=== PATIENT | male | born 1965 | race Caucasian/White ===

== ENCOUNTER 2017-03-03 15:44 | Outpatient (CLI) | payer OTHER ==
[~2017-03-03] VITALS: Ht 154.9 cm; Wt 59.1 kg
[~2017-03-03 15:44] MED LIST: ASA; Amaryl; IBUP-1542 PO; Januvia; tylenol
[2017-03-03 15:53] VITALS: BP 155/72; PULSE 80; RESP 18; Ht 154.9 cm; Wt 59.1 kg
--- NOTE | 2017-03-03 16:22 | PN ---
Date/Time of Note Date/Time of Note DATE: 03/03/17 TIME: 16:18 Outpatient Progress Note Chief Complaint GI bleed/anemia/diabetes/hypertension HPI GI bleed/patient was recently admitted with a GI bleeding, patient had EGD, and cauterization, patient already on medication, patient still has slight abdominal discomfort, Anemia/no hematemesis melena, patient feel weakness and tiredness, no dizziness or syncope, Diabetes/no pleuritic supple due to hypoglycemia, patient blood sugar was 160 this morning, Hypertension/no headache or dizziness, no lightheadedness, no local focal weakness, Review of Systems Const: No Fever, no chills, no Wt. loss, no Fatigue, normal appetite, no diaphoresis. Eyes: No pain, no discharge, no redness, no visual change, no foreign body. ENT: No pain, no bleeding, no congestion, no sore throat, no dysphagia, no discharge or rhinitis. Lymph: No adenopathy, no tender nodes, no lymphedema. Resp: No SOB, no cough, no sputum, no wheezing, no chest pain. CV: No chest pain, no palpitaions, no BISWAS, no PND, no edema. GI: Normal appetite, mild epigastric pain, no nausea, no vomiting, no diarrhea, no blood, no constipation. : No frequency, no urgency, no dysuria, no hematuria, no flank pain, no discharge, no bleeding. Musc: No bone/joint pain, no back pain, no neck pain, no knee pain, no restricted ROM. Skin: No rash, no skin lesions, no erythema, no laceration, no bruising, no pruritus. Neuro: No AGUILLON, no dizziness, no syncope, no seizure, no focal-weakness. Endo: No polyuria, no polydypsia, no dry-skin, no temp-intolerance. Psych: No hallucinations, no depression, no anxiety, no suicidal ideation. Ext: No edema, no pain, no ulcer, no weakness. Physical Exam General Appearance: A 51 year-old male who appears well-developed, well- nourished, in no acute distress. HEENT: Head normocephalic, atraumatic. Pupils equal, round, reactive to light and accommodate. Sclerae are no jaundice. Nasal turbinates pink without erythema or nasal discharge. Mucous membranes pink and moist without lesions. Oropharynx clear without any exudate or discharge. NECK: Supple. Trachea midline, No thyromegaly, No cervical lymphadenopathy, No mass, No carotid bruits, No JVD, Carotid pulses 2+ bilaterally. PULMONARY: Clear to auscultaion bilaterally, No retractions, Chest expansion symmetric bilaterally, no rales, no ronchi, no dulness on percussion. CARDIAC: Normal SI and S2, Regular rate and rythm, no murmur, gallop, or rub. GASTROINTESTINAL: Abdomen is soft, mild epigastric discomfort, Non Rigid, No distention, Positive bowel sounds x4 quadrants, Liver normal. SKIN: Warm, dry, no rash, no bruise, no echmosis. EXTREMITIES: Bilateral lower extremities normal, no edema, no phlabitus, pulse palpable, no contracture. MUSCULOSKELETAL: Spine Normal, Non-tender, Normal range of motion, No swelling, no deformity, no clubbing, or cyanosis, the patient has no edema to bilateral lower extremities, dorsalis pedis pulses palpable bilaterally. NEUROLOGIC: The patient is awake, alert, oriented, responding to yes/no questions appropriately, moving all extremities, cranial nerve intact, normal strenght, normal power, normal coordination, normal gait. Allergies Coded Allergies: No Known Allergies (Verified Allergy, Mild, 11/23/10) PMH GI bleeding/PUD/anemia/diabetes/hypertension/anxiety Social Hx No smoking no drinking, Family Hx Noncontributory Assessment/Plan Impression GI bleeding/anemia/diabetes/hypertension Plan Patient education done about GI bleeding, diabetes and hypertension, patient encouraged to control the blood pressure and blood sugar, Patient still complains of minimal abdominal discomfort, patient does not have any black stool at present, will monitor closely, We will repeat CBC and BMP in 10 days, will check hemoglobin and hematocrit and blood sugar, Patient encouraged to follow with the primary care physician, Patient advised not to take Advil, or Motrin, or ibuprofen, Naprosyn, Medications Home Meds Active Scripts Ibuprofen* (Motrin*) 600 Mg Tab, 600 MG PO Q6, #30 TAB Prov:WATSON CARLSON 11/13/15 Reported Medications [Asa] No Conflict Check 11/23/10 [Januvia] No Conflict Check 11/23/10 [Amaryl] No Conflict Check 11/23/10 [tylenol] No Conflict Check 11/23/10 CY BHATIA MD Mar 03, 2017 16:22
[2017-03-03] MEDS ORDERED: LANT3I SC (16:37)
[2017-03-03] MEDS ORDERED: SIMV20TA PO (16:37)
[2017-03-03] MEDS ORDERED: BENA5TAB2 PO (16:37)
== END 2017-03-03 16:49 | disposition home or self-care (01) ==
LOC: DCC 15:44
PROVIDERS: ATTEND Internal Medicine
DX: K92.2 Gastrointestinal hemorrhage, unspecified (principal); D64.9 Anemia, unspecified; I10 Essential (primary) hypertension; E11.9 Type 2 diabetes mellitus without complications
CPT/HCPCS: 82962; G0463

== ENCOUNTER 2017-04-12 23:16 | Inpatient (IN) | payer OTHER ==
[~2017-04-12] VITALS: Ht 154.9 cm; Wt 56.1 kg
[~2017-04-12 23:16] MED LIST changes: +BENA5TAB2 PO; +LANT3I SC; +SIMV20TA PO
[2017-04-13] VITALS (11 sets, daily range): BP systolic 104–155; BP diastolic 59–76; PULSE 65–83; RESP 20; Ht 154.9 cm; Wt 56.1 kg
[2017-04-13] MEDS ORDERED: hydrALAzine 20 MG INJ IV PRN (03:00)
[2017-04-13] MEDS ORDERED: HYDROCODONE/APAP (5/325) TAB PO PRN (03:00)
[2017-04-13] MEDS ORDERED: GLUCOSE GEL 15 GRAM TUBE BUCCAL PRN (03:30)
[2017-04-13] MEDS ORDERED: DEXTROSE 50% 50 ML SYRINGE IV PRN ×2 (03:30)
[2017-04-13] MEDS ORDERED: GLUCOSE GEL 15 GRAM TUBE PO PRN ×2 (03:30)
[2017-04-13] MEDS ORDERED: GLUCAGON 1 MG INJ IM PRN (03:30)
[2017-04-13 04:09] LABS: BASOPHILS % 0.1 % (0.0-2.0); HEMATOCRIT 29.5 % (42.0-52.0); HEMOGLOBIN 10.4 g/dl (14.0-18.0); LYMPHOCYTES % 10.4 % (15.0-51.0); MEAN CORPUSCULAR HEMOGLOBIN 29.9 pg (29.0-33.0); MEAN CORPUSCULAR HGB CONC 35.3 g/dl (32.0-37.0); MEAN CORPUSCULAR VOLUME 84.8 fl (82.0-101.0); MEAN PLATELET VOLUME 12.3 fl (7.4-10.4); MONOCYTE # 0.6 10^3/ul (0.3-0.9); PLATELET COUNT 116 10^3/UL (140-415); RED BLOOD COUNT 3.48 10^6/ul (4.70-6.10); RED CELL DISTRIBUTION WIDTH 12.4 % (11.5-14.5); WHITE BLOOD COUNT 9.3 10^3/ul (4.8-10.8)
[2017-04-13 04:35] LABS: IRON 62 ug/dl (35-150)
[2017-04-13 04:43] LABS: TOTAL IRON BINDING CAPACITY 321 ug/dl (241-421)
[2017-04-13] MEDS: PANTOPRAZOLE IV 80 MG in SOD CHLORIDE 0.9% 100 ML IV SCH ×3 (05:00→14:00)
[2017-04-13 05:28] LABS: ALBUMIN 3.8 g/dl (3.3-4.9); BILIRUBIN,INDIRECT 1.4 mg/dl (0-1.1); BILIRUBIN,TOTAL 1.4 mg/dl (0.2-1.3); CALCIUM 9.2 mg/dl (8.4-10.2); CREATININE 1.04 mg/dl (0.61-1.24); MAGNESIUM 1.8 mg/dl (1.7-2.5); PHOSPHORUS 5.1 mg/dl (2.5-4.9); POTASSIUM 4.5 mmol/L (3.5-5.1); TOTAL PROTEIN 7.2 g/dl (6.1-8.1)
[2017-04-13 05:29] LABS: ALBUMIN/GLOBULIN RATIO 1.11
--- NOTE | 2017-04-13 06:42 | HP ---
Date/Time of Note Date/Time of Note DATE: 04/13/17 TIME: 06:38 Assessment/Plan VTE Prophylaxis VTE Prophylaxis Intervention: SCD's Lines/Catheters IV Catheter Type (from Nrs): Peripheral IV Assessment/Plan Assessment/Plan 1. Upper GI bleed, likely from bleeding gastric ulcer -Patient is status post EGD with clipping of gastric ulcer at the outside hospital 3 months ago. Plan is for GI consult. He will be placed on Protonix drip. Will keep him n.p.o. with IV fluids. -Monitor H&H closely and transfuse as needed 2. Insulin-dependent diabetes -will check A1c -Continue insulin with adjustment as needed 3. Hypertension: Blood pressure not was at goal -Adjust meds as needed 4. History of dyslipidemia -Resume home med once no longer npo HPI/ROS Admit Date/Time Admit Date/Time Apr 13, 2017 at 01:05 Hx of Present Illness This is a 51-year-old male with a history of hypertension, insulin-dependent diabetes, dyslipidemia, and a gastric ulcer who initially presented to the outside hospital complaining of vomiting blood. Patient was transferred to [facility] for insurance reason. He stated that 3 months ago he had similar episodes of hematemesis for which he underwent EGD I believe at [facility], with clipping of his gastric ulcers. He said he went back to an outside hospital 2 weeks ago for nonbilious nonbloody vomiting. At that time, an EGD was not done. He said that he was diagnosed with H-pylori 2 years ago in his [place], [facility]. Patient denied alcohol abuse saying that he only drinks about beers occasionally. Patient was started on Protonix drip at outside hospital prior to transfer. . PMH/Family/Social Past Medical History Medical History: diabetes, high cholesterol, hypertension, other (Gastric ulcer ) Social History Alcohol Use: occasionally Smoking Status: Never smoker Drug Use: none Exam/Review of Systems Vital Signs Vitals Vital Signs Date Time Temp Pulse Resp B/P Pulse Ox O2 Delivery O2 Flow Rate FiO2 04/13/17 05:25 83 20 155/75 Room Air Intake and Output 04/12/17 04/12/17 04/13/17 15:00 23:00 07:00 Intake Total 260 ml Balance 260 ml Exam Constitutional: alert, oriented, well developed Head: atraumatic, normocephalic Eyes: EOMI, PERRL Respiratory: clear to auscultation, normal air movement Cardiovascular: nl pulses, regular rate and rhythm Gastrointestinal: soft, tender Extremities: normal pulses Labs Result Diagram: 04/13/17 0340 04/13/17 034 Medications Medications Current Medications Pantoprazole/ Sodium Chloride (Protonix Iv/NS) 100 ml @ 10 mls/hr Q10H IV Last administered on 04/13/17t 05:19; Admin Dose 10 MLS/HR; Start 04/13/17 at 04 :00 Benazepril HCl (Lotensin) 20 mg DAILY PO ; Start 04/13/17 at 09:00 Acetaminophen/ Hydrocodone Bitart ([place] (5/325)) 1 tab Q6H PRN PO M; Start at 03:00 Morphine Sulfate (morphine) 2 mg Q4H PRN IV SEVERE PAIN LEVEL 7-10; Start 04/13 at 03:00 Ondansetron HCl (Zofran Inj) 4 mg Q6H PRN IV NAUSEA AND/OR VOMITING; Start at 03:00 Amlodipine Besylate (Norvasc) 10 mg DAILY PO ; Start 04/13/17 at 09:00 Hydralazine HCl (Apresoline) 10 mg Q6H PRN IV ELEVATED BLOOD PRESSURE; Start at 03:00 Diagnostic Test (Pha) (Accu-Chek) 1 ea 02 XX ; Start 04/14/17 at 02:00 Insulin Glargine (Lantus) 12 unit DAILY@08 SC ; Start 04/13/17 at 08:00 Diagnostic Test (Pha) (Accu-Chek) 1 ea 02 XX ; Start 04/14/17 at 02:00 Miscellaneous Information 1 ea NOTE XX ; Start 04/13/17 at 03:30 Glucose (Glutose) 15 gm Q15M PRN PO DECREASED GLUCOSE; Start 04/13/17 at 03:30 Glucose (Glutose) 22.5 gm Q15M PRN PO DECREASED GLUCOSE; Start 04/13/17 at 03: 30 Dextrose (D50w Syringe) 25 ml Q15M PRN IV DECREASED GLUCOSE; Start 04/13/17 at 03:30 Dextrose (D50w Syringe) 50 ml Q15M PRN IV DECREASED GLUCOSE; Start 04/13/17 at 03:30 Glucagon (Glucagen) 1 mg Q15M PRN IM DECREASED GLUCOSE; Start 04/13/17 at 03:30 Glucose (Glutose) 15 gm Q15M PRN BUCCAL DECREASED GLUCOSE; Start 04/13/17 at 03 :30 TAMI ESPARZA MD Apr 13, 2017 06:42
[2017-04-13] MEDS: AMLODIPINE 10 MG TAB PO SCH (09:10)
[2017-04-13] MEDS: BENAZEPRIL 20 MG TAB PO SCH (09:11)
[2017-04-13] MEDS: INSULIN GLARGINE [LANtus] 3 ML PEN SC SCH (10:22)
[2017-04-13] MEDS: INSULIN ASPART [NOVOLOG] 3 ML PEN SC SCH ×4 (10:22→21:00)
[2017-04-14] VITALS (11 sets, daily range): BP systolic 92–155; BP diastolic 61–98; PULSE 62–80; RESP 15–20
[2017-04-14] MEDS: ACCU-CHEK XX SCH ×2 (01:40)
[2017-04-14] MEDS: PANTOPRAZOLE IV 80 MG in SOD CHLORIDE 0.9% 100 ML IV SCH ×3 (03:36→20:31)
[2017-04-14] MEDS: ONDANSETRON 4 MG INJ IV PRN ×2 (04:45→13:22)
[2017-04-14] MEDS: morphine 2 MG INJ IV PRN ×2 (04:47→08:25)
[2017-04-14 06:53] LABS: BASOPHILS % 0.5 % (0.0-2.0); EOSINOPHILS # 0.1 10^3/ul (0.0-0.5); EOSINOPHILS % 0.6 % (0.0-7.0); HEMATOCRIT 29.9 % (42.0-52.0); HEMOGLOBIN 10.5 g/dl (14.0-18.0); LYMPHOCYTES # 1.5 10^3/ul (0.8-2.9); LYMPHOCYTES % 17.5 % (15.0-51.0); MEAN CORPUSCULAR HEMOGLOBIN 29.8 pg (29.0-33.0); MEAN CORPUSCULAR HGB CONC 35.1 g/dl (32.0-37.0); MEAN CORPUSCULAR VOLUME 84.9 fl (82.0-101.0); MEAN PLATELET VOLUME 11.6 fl (7.4-10.4); MONOCYTE # 0.7 10^3/ul (0.3-0.9); NEUTROPHILS % 72.9 % (39.0-77.0); PLATELET COUNT 127 10^3/UL (140-415); RED BLOOD COUNT 3.52 10^6/ul (4.70-6.10); RED CELL DISTRIBUTION WIDTH 12.5 % (11.5-14.5); WHITE BLOOD COUNT 8.4 10^3/ul (4.8-10.8)
[2017-04-14 07:12] LABS: CALCIUM 8.8 mg/dl (8.4-10.2); CREATININE 1.07 mg/dl (0.61-1.24); POTASSIUM 3.9 mmol/L (3.5-5.1)
[2017-04-14] MEDS: INSULIN ASPART [NOVOLOG] 3 ML PEN SC SCH ×4 (07:38→20:30)
[2017-04-14] MEDS: INSULIN GLARGINE [LANtus] 3 ML PEN SC SCH (07:41)
[2017-04-14] MEDS: AMLODIPINE 10 MG TAB PO SCH (08:24)
[2017-04-14] MEDS: BENAZEPRIL 20 MG TAB PO SCH (08:25)
--- NOTE | 2017-04-14 16:58 | PN ---
Date/Time of Note Date/Time of Note DATE: 04/14/17 TIME: 16:56 Assessment/Plan VTE Prophylaxis VTE Prophylaxis Intervention: SCD's Lines/Catheters IV Catheter Type (from Nrs): Peripheral IV Assessment/Plan Chief Complaint/Hosp Course 1. Upper GI bleed, likely from bleeding gastric ulcer-stable -Patient is status post EGD with clipping of gastric ulcer at the outside hospital 3 months ago -GI consult -Protonix drip. Will keep him n.p.o. with IV fluids. -Monitor H&H closely and transfuse as needed 2. Insulin-dependent diabetes -A1c 8.2 -Continue insulin with adjustment as needed 3. Hypertension: Stable -Adjust meds as needed 4. History of dyslipidemia -Resume home med once no longer npo Prophylaxis: SCDs Problems: Subjective 24 Hr Interval Summary Constitutional: no complaints Exam/Review of Systems Vital Signs Vitals Vital Signs Date Time Temp Pulse Resp B/P Pulse Ox O2 Delivery O2 Flow Rate FiO2 04/14/17 16:16 65 04/14/17 15:50 97.8 20 131/73 97 04/13/17 05:25 Room Air Intake and Output 04/13/17 04/13/17 04/14/17 15:00 23:00 07:00 Intake Total 1120 ml 340 ml Balance 1120 ml 340 ml Exam Constitutional: alert, oriented Respiratory: clear to auscultation Cardiovascular: regular rate and rhythm Gastrointestinal: soft, No distended Musculoskeletal: nl extremities to inspection Results Result Diagram: 04/14/17 0625 04/14/17 0625 Results 24 hrs Laboratory Tests Test 04/13/17 17:52 04/13/17 21:09 04/14/17 06:25 04/14/17 07:31 Bedside Glucose 113 111 162 White Blood Count 8.4 Red Blood Count 3.52 L Hemoglobin 10.5 L Hematocrit 29.9 L Mean Corpuscular Volume 84.9 Mean Corpuscular Hemoglobin 29.8 Mean Corpuscular Hemoglobin Concent 35.1 Red Cell Distribution Width 12.5 Platelet Count 127 L Mean Platelet Volume 11.6 H Neutrophils % 72.9 Lymphocytes % 17.5 Monocytes % 8.0 Eosinophils % 0.6 Basophils % 0.5 Nucleated Red Blood Cells % 0.0 Neutrophils # (Manual) 6 Lymphocytes # 1.5 Monocytes # 0.7 Eosinophils # 0.1 Basophils # 0.0 Nucleated Red Blood Cells # 0.0 Sodium Level 137 Potassium Level 3.9 Chloride Level 101 Carbon Dioxide Level 26 Anion Gap 14 Blood Urea Nitrogen 27 H Creatinine 1.07 Glucose Level 139 # Calcium Level 8.8 Test 04/14/17 11:46 Bedside Glucose 173 Medications Medications Current Medications Pantoprazole/ Sodium Chloride (Protonix Iv/NS) 100 ml @ 10 mls/hr Q10H IV Last administered on 04/14/17 12:49; Admin Dose 10 MLS/HR; Start 04/13/17 at 04 :00 Benazepril HCl (Lotensin) 20 mg DAILY PO Last administered on 04/14/17 08:25; Admin Dose 20 MG; Start 04/13/17 at 09:00 Acetaminophen/ Hydrocodone Bitart ([place] (5/325)) 1 tab Q6H PRN PO M Last administered on 04/13/17 17:55; Admin Dose 1 TAB; Start 04/13/17 at 03:00 Morphine Sulfate (morphine) 2 mg Q4H PRN IV SEVERE PAIN LEVEL 7-10 Last administered on 04/14/17 08:25; Admin Dose 2 MG; Start 04/13/17 at 03:00 Ondansetron HCl (Zofran Inj) 4 mg Q6H PRN IV NAUSEA AND/OR VOMITING Last administered on 04/14/17 13:22; Admin Dose 4 MG; Start 04/13/17 at 03:00 Amlodipine Besylate (Norvasc) 10 mg DAILY PO Last administered on 04/14/17 08: 24; Admin Dose 10 MG; Start 04/13/17 at 09:00 Hydralazine HCl (Apresoline) 10 mg Q6H PRN IV ELEVATED BLOOD PRESSURE; Start at 03:00 Diagnostic Test (Pha) (Accu-Chek) 1 ea 02 XX ; Start 04/14/17 at 02:00 Insulin Glargine (Lantus) 12 unit DAILY@08 SC Last administered on 04/14/17 07 :41; Admin Dose 12 UNIT; Start 04/13/17 at 08:00 Diagnostic Test (Pha) (Accu-Chek) 1 ea 02 XX ; Start 04/14/17 at 02:00 Miscellaneous Information 1 ea NOTE XX ; Start 04/13/17 at 03:30 Glucose (Glutose) 15 gm Q15M PRN PO DECREASED GLUCOSE; Start 04/13/17 at 03:30 Glucose (Glutose) 22.5 gm Q15M PRN PO DECREASED GLUCOSE; Start 04/13/17 at 03: 30 Dextrose (D50w Syringe) 25 ml Q15M PRN IV DECREASED GLUCOSE; Start 04/13/17 at 03:30 Dextrose (D50w Syringe) 50 ml Q15M PRN IV DECREASED GLUCOSE; Start 04/13/17 at 03:30 Glucagon (Glucagen) 1 mg Q15M PRN IM DECREASED GLUCOSE; Start 04/13/17 at 03:30 Glucose (Glutose) 15 gm Q15M PRN BUCCAL DECREASED GLUCOSE; Start 04/13/17 at 03 :30 LORIE CASTELLANOS Apr 14, 2017 16:58
--- NOTE | 2017-04-14 17:40 | CONS ---
Date/Time of Note Date/Time of Note DATE: 04/14/17 TIME: 17:31 Assessment/Plan Assessment/Plan Additional Assessment/Plan Assessment: * GI bleeding/small amount hematemesis * Previous history of gastric ulcers with bleeding * Moderate anemia/stable * Diabetes mellitus type 2 * Hypertension * Dyslipidemia * Former alcohol abuse Plan: * Continue PPI therapy * Monitor H&H and transfuse as necessary * EGD Monday unless actively bleeding Consultation Date/Type/Reason Admit Date/Time Apr 13, 2017 at 01:05 Date of Consultation: Apr 14, 2017 Reason for Consultation GI bleeding Hx of Present Illness 51-year-old male transferred from [facility] where he presented with small amount hematemesis. The patient has significant past history of gastric ulcer with bleeding 3 months ago for which endoscopic therapeutic intervention with Endo Clip being apparently took place. The patient was discharge and treated with ranitidine. The patient continueD to experience frequent episodes of nausea and vomiting in the morning, most of the time with no blood. 3 days ago he experienced what he describes a half a cup of blood. There has been no hematochezia or melena. The patient has had no further episodes of bleeding. His hemoglobin has stabilized in the 10 g range without transfusions. Unfortunately there is no availability to perform endoscopic examination through the weekend. The patient should be continued on present management with PPI therapy a clear liquid diet will be instituted and if the patient remains in the hospital by Monday EGD should be entertained. Of course if active bleeding were to occur emergency endoscopy will have to be undertaken. Constitutional: no complaints Eyes: no complaints ENT: no complaints Respiratory: no complaints Cardiovascular: no complaints Gastrointestinal: other (See HPI) Genitourinary: no complaints Musculoskeletal: no complaints Skin: no complaints Neurologic: no complaints Endocrine: no complaints Lymphatic: no complaints Psychological: nl mood/affect, no complaints Immunologic: no complaints Past Medical History Medical History: diabetes, high cholesterol, hypertension, other (Gastric ulcer ) Past Surgical History Past Surgical Hx: no surgical history Social History Alcohol Use: occasionally Smoking Status: Never smoker Drug Use: none Exam/Review of Systems Vital Signs Vitals Vital Signs Date Time Temp Pulse Resp B/P Pulse Ox O2 Delivery O2 Flow Rate FiO2 04/14/17 16:16 65 04/14/17 15:50 97.8 20 131/73 97 04/13/17 05:25 Room Air Intake and Output 04/13/17 04/13/17 04/14/17 15:00 23:00 07:00 Intake Total 1120 ml 340 ml Balance 1120 ml 340 ml Exam Constitutional: alert, oriented, well developed Psych: nl mood/affect, no complaints Head: atraumatic, normocephalic Eyes: EOMI, PERRL, nl conjunctiva, nl lids, nl sclera ENMT: nl external ears & nose, nl lips & teeth, nl nasal mucosa & septum Neck: non-tender, supple Respiratory: clear to auscultation, normal air movement Cardiovascular: nl pulses, regular rate and rhythm Gastrointestinal: bowel sounds, nl liver, spleen, soft, tender (Mild epigastric tenderness), No ascites, No distended, No mass, No rebound or guarding Musculoskeletal: nl extremities to inspection, nl gait and stance Extremities: normal pulses Neurological: WATERPROOFING MIXER II-XII intact, nl mental status, nl speech, nl strength Skin: nl turgor, No rash or lesions Lymph: nl lymph nodes Results Result Diagram: 04/14/17 0625 04/14/17 0625 Results 24 hrs Laboratory Tests Test 04/13/17 17:52 04/13/17 21:09 04/14/17 06:25 04/14/17 07:31 Bedside Glucose 113 111 162 White Blood Count 8.4 Red Blood Count 3.52 L Hemoglobin 10.5 L Hematocrit 29.9 L Mean Corpuscular Volume 84.9 Mean Corpuscular Hemoglobin 29.8 Mean Corpuscular Hemoglobin Concent 35.1 Red Cell Distribution Width 12.5 Platelet Count 127 L Mean Platelet Volume 11.6 H Neutrophils % 72.9 Lymphocytes % 17.5 Monocytes % 8.0 Eosinophils % 0.6 Basophils % 0.5 Nucleated Red Blood Cells % 0.0 Neutrophils # (Manual) 6 Lymphocytes # 1.5 Monocytes # 0.7 Eosinophils # 0.1 Basophils # 0.0 Nucleated Red Blood Cells # 0.0 Sodium Level 137 Potassium Level 3.9 Chloride Level 101 Carbon Dioxide Level 26 Anion Gap 14 Blood Urea Nitrogen 27 H Creatinine 1.07 Glucose Level 139 # Calcium Level 8.8 Test 04/14/17 11:46 04/14/17 16:57 Bedside Glucose 173 85 Medications Medications Current Medications Pantoprazole/ Sodium Chloride (Protonix Iv/NS) 100 ml @ 10 mls/hr Q10H IV Last administered on 04/14/17 12:49; Admin Dose 10 MLS/HR; Start 04/13/17 at 04 :00 Benazepril HCl (Lotensin) 20 mg DAILY PO Last administered on 04/14/17 08:25; Admin Dose 20 MG; Start 04/13/17 at 09:00 Acetaminophen/ Hydrocodone Bitart ([place] (5/325)) 1 tab Q6H PRN PO M Last administered on 04/13/17 17:55; Admin Dose 1 TAB; Start 04/13/17 at 03:00 Morphine Sulfate (morphine) 2 mg Q4H PRN IV SEVERE PAIN LEVEL 7-10 Last administered on 04/14/17 08:25; Admin Dose 2 MG; Start 04/13/17 at 03:00 Ondansetron HCl (Zofran Inj) 4 mg Q6H PRN IV NAUSEA AND/OR VOMITING Last administered on 04/14/17 13:22; Admin Dose 4 MG; Start 04/13/17 at 03:00 Amlodipine Besylate (Norvasc) 10 mg DAILY PO Last administered on 04/14/17 08: 24; Admin Dose 10 MG; Start 04/13/17 at 09:00 Hydralazine HCl (Apresoline) 10 mg Q6H PRN IV ELEVATED BLOOD PRESSURE; Start at 03:00 Diagnostic Test (Pha) (Accu-Chek) 1 ea 02 XX ; Start 04/14/17 at 02:00 Insulin Glargine (Lantus) 12 unit DAILY@08 SC Last administered on 04/14/17 07 :41; Admin Dose 12 UNIT; Start 04/13/17 at 08:00 Diagnostic Test (Pha) (Accu-Chek) 1 ea 02 XX ; Start 04/14/17 at 02:00 Miscellaneous Information 1 ea NOTE XX ; Start 04/13/17 at 03:30 Glucose (Glutose) 15 gm Q15M PRN PO DECREASED GLUCOSE; Start 04/13/17 at 03:30 Glucose (Glutose) 22.5 gm Q15M PRN PO DECREASED GLUCOSE; Start 04/13/17 at 03: 30 Dextrose (D50w Syringe) 25 ml Q15M PRN IV DECREASED GLUCOSE; Start 04/13/17 at 03:30 Dextrose (D50w Syringe) 50 ml Q15M PRN IV DECREASED GLUCOSE; Start 04/13/17 at 03:30 Glucagon (Glucagen) 1 mg Q15M PRN IM DECREASED GLUCOSE; Start 04/13/17 at 03:30 Glucose (Glutose) 15 gm Q15M PRN BUCCAL DECREASED GLUCOSE; Start 04/13/17 at 03 :30 TRICIA CHRISTENSEN MD Apr 14, 2017 17:39
[2017-04-14 20:18] LABS: HEMATOCRIT 30.6 % (42.0-52.0); HEMOGLOBIN 10.4 g/dl (14.0-18.0)
[2017-04-15 00:38] LABS: HEMATOCRIT 28.5 % (42.0-52.0); HEMOGLOBIN 10.1 g/dl (14.0-18.0)
[2017-04-15] MEDS: ACCU-CHEK XX SCH ×2 (02:12)
[2017-04-15 03:59] VITALS: BP 115/63; RESP 15
[2017-04-15] MEDS: morphine 2 MG INJ IV PRN (05:59)
[2017-04-15] MEDS: PANTOPRAZOLE IV 80 MG in SOD CHLORIDE 0.9% 100 ML IV SCH ×2 (06:00→17:16)
[2017-04-15] MEDS: ONDANSETRON 4 MG INJ IV PRN (06:07)
[2017-04-15 07:13] LABS: BASOPHILS % 0.7 % (0.0-2.0); EOSINOPHILS # 0.1 10^3/ul (0.0-0.5); HEMATOCRIT 29.4 % (42.0-52.0); HEMOGLOBIN 10.6 g/dl (14.0-18.0); LYMPHOCYTES # 1.7 10^3/ul (0.8-2.9); MEAN CORPUSCULAR HEMOGLOBIN 30.4 pg (29.0-33.0); MEAN CORPUSCULAR HGB CONC 36.1 g/dl (32.0-37.0); MEAN CORPUSCULAR VOLUME 84.2 fl (82.0-101.0); MEAN PLATELET VOLUME 11.8 fl (7.4-10.4); MONOCYTE # 0.6 10^3/ul (0.3-0.9); MONOCYTES % 10.2 % (0.0-11.0); NEUTROPHILS % 58.9 % (39.0-77.0); PLATELET COUNT 124 10^3/UL (140-415); RED BLOOD COUNT 3.49 10^6/ul (4.70-6.10); RED CELL DISTRIBUTION WIDTH 12.1 % (11.5-14.5); WHITE BLOOD COUNT 5.9 10^3/ul (4.8-10.8)
[2017-04-15 07:30] VITALS: BP 178/79; RESP 16
[2017-04-15 07:34] LABS: CALCIUM 8.9 mg/dl (8.4-10.2); CREATININE 1.04 mg/dl (0.61-1.24); POTASSIUM 4.4 mmol/L (3.5-5.1)
[2017-04-15 08:31] VITALS: BP 160/86; RESP 20
[2017-04-15] MEDS: BENAZEPRIL 20 MG TAB PO SCH (09:35)
[2017-04-15] MEDS: AMLODIPINE 10 MG TAB PO SCH (09:35)
[2017-04-15] MEDS: INSULIN ASPART [NOVOLOG] 3 ML PEN SC SCH ×4 (09:36→20:34)
[2017-04-15 09:37] VITALS: BP 143/73; PULSE 71
[2017-04-15] MEDS: INSULIN GLARGINE [LANtus] 3 ML PEN SC SCH (09:37)
--- NOTE | 2017-04-15 11:07 | PN ---
Date/Time of Note Date/Time of Note DATE: 04/15/17 TIME: 11:06 Assessment/Plan VTE Prophylaxis VTE Prophylaxis Intervention: SCD's Lines/Catheters IV Catheter Type (from Nrs): Peripheral IV Assessment/Plan Chief Complaint/Hosp Course 1. Upper GI bleed, likely from bleeding gastric ulcer-stable -Patient is status post EGD with clipping of gastric ulcer at the outside hospital 3 months ago -GI consult appreciated, plan for EGD on Monday -Protonix drip -Monitor H&H closely and transfuse as needed 2. Insulin-dependent diabetes -A1c 8.2 -Continue insulin with adjustment as needed 3. Hypertension: Stable -Adjust meds as needed 4. History of dyslipidemia -Resume home med once no longer npo Prophylaxis: SCDs Problems: Subjective 24 Hr Interval Summary Constitutional: no complaints Exam/Review of Systems Vital Signs Vitals Vital Signs Date Time Temp Pulse Resp B/P Pulse Ox O2 Delivery O2 Flow Rate FiO2 04/15/17 09:37 71 143/73 04/15/17 08:31 98.2 20 98 04/13/17 05:25 Room Air Intake and Output 04/14/17 04/14/17 04/15/17 15:00 23:00 07:00 Intake Total 840 ml 40 ml Balance 840 ml 40 ml Exam Constitutional: alert Respiratory: clear to auscultation Cardiovascular: regular rate and rhythm Gastrointestinal: soft, No distended Musculoskeletal: nl extremities to inspection Results Result Diagram: 04/15/17 0649 04/15/17 0649 Results 24 hrs Laboratory Tests Test 04/14/17 11:46 04/14/17 16:57 04/14/17 19:35 04/14/17 20:26 Bedside Glucose 173 85 219 Hemoglobin 10.4 L Hematocrit 30.6 L Test 04/15/17 00:28 04/15/17 02:54 04/15/17 06:49 04/15/17 08:04 Hemoglobin 10.1 L 10.6 L Hematocrit 28.5 L 29.4 L Bedside Glucose 137 163 White Blood Count 5.9 # Red Blood Count 3.49 L Mean Corpuscular Volume 84.2 Mean Corpuscular Hemoglobin 30.4 Mean Corpuscular Hemoglobin Concent 36.1 Red Cell Distribution Width 12.1 Platelet Count 124 L Mean Platelet Volume 11.8 H Neutrophils % 58.9 Lymphocytes % 29.0 Monocytes % 10.2 Eosinophils % 1.0 Basophils % 0.7 Nucleated Red Blood Cells % 0.0 Neutrophils # (Manual) 3 Lymphocytes # 1.7 Monocytes # 0.6 Eosinophils # 0.1 Basophils # 0.0 Nucleated Red Blood Cells # 0.0 Sodium Level 139 Potassium Level 4.4 Chloride Level 99 Carbon Dioxide Level 27 Anion Gap 17 H Blood Urea Nitrogen 24 H Creatinine 1.04 Glucose Level 170 Calcium Level 8.9 Test 04/15/17 09:30 Bedside Glucose 179 Medications Medications Current Medications Pantoprazole/ Sodium Chloride (Protonix Iv/NS) 100 ml @ 10 mls/hr Q10H IV Last administered on 04/14/17 20:31; Admin Dose 10 MLS/HR; Start 04/13/17 at 04 :00 Benazepril HCl (Lotensin) 20 mg DAILY PO Last administered on 04/15/17 09:35; Admin Dose 20 MG; Start 04/13/17 at 09:00 Acetaminophen/ Hydrocodone Bitart ([place] (5/325)) 1 tab Q6H PRN PO M Last administered on 04/13/17 17:55; Admin Dose 1 TAB; Start 04/13/17 at 03:00 Morphine Sulfate (morphine) 2 mg Q4H PRN IV SEVERE PAIN LEVEL 7-10 Last administered on 04/15/17 05:59; Admin Dose 2 MG; Start 04/13/17 at 03:00 Ondansetron HCl (Zofran Inj) 4 mg Q6H PRN IV NAUSEA AND/OR VOMITING Last administered on 04/15/17 06:07; Admin Dose 4 MG; Start 04/13/17 at 03:00 Amlodipine Besylate (Norvasc) 10 mg DAILY PO Last administered on 04/15/17 09: 35; Admin Dose 10 MG; Start 04/13/17 at 09:00 Hydralazine HCl (Apresoline) 10 mg Q6H PRN IV ELEVATED BLOOD PRESSURE; Start at 03:00 Diagnostic Test (Pha) (Accu-Chek) 1 ea 02 XX Last administered on 04/15/17 02: 12; Admin Dose 1 EA; Start 04/14/17 at 02:00 Insulin Glargine (Lantus) 12 unit DAILY@08 SC Last administered on 04/15/17 09 :37; Admin Dose 12 UNIT; Start 04/13/17 at 08:00 Diagnostic Test (Pha) (Accu-Chek) 1 ea 02 XX Last administered on 04/15/17 02: 12; Admin Dose 1 EA; Start 04/14/17 at 02:00 Miscellaneous Information 1 ea NOTE XX ; Start 04/13/17 at 03:30 Glucose (Glutose) 15 gm Q15M PRN PO DECREASED GLUCOSE; Start 04/13/17 at 03:30 Glucose (Glutose) 22.5 gm Q15M PRN PO DECREASED GLUCOSE; Start 04/13/17 at 03: 30 Dextrose (D50w Syringe) 25 ml Q15M PRN IV DECREASED GLUCOSE; Start 04/13/17 at 03:30 Dextrose (D50w Syringe) 50 ml Q15M PRN IV DECREASED GLUCOSE; Start 04/13/17 at 03:30 Glucagon (Glucagen) 1 mg Q15M PRN IM DECREASED GLUCOSE; Start 04/13/17 at 03:30 Glucose (Glutose) 15 gm Q15M PRN BUCCAL DECREASED GLUCOSE; Start 04/13/17 at 03 :30 LORIE CASTELLANOS Apr 15, 2017 11:07
--- NOTE | 2017-04-15 11:53 | PN ---
Date/Time of Note Date/Time of Note DATE: 04/15/17 TIME: 11:51 Assessment/Plan VTE Prophylaxis VTE Prophylaxis Intervention: SCD's Lines/Catheters IV Catheter Type (from Nrs): Peripheral IV Assessment/Plan Assessment/Plan Assessment: * GI bleeding/small amount hematemesis/stable * Previous history of gastric ulcers with bleeding * Moderate anemia/stable * Diabetes mellitus type 2 * Hypertension * Dyslipidemia * Former alcohol abuse Plan: * Continue PPI therapy * Monitor H&H and transfuse as necessary * EGD Monday unless actively bleeding Subjective 24 Hr Interval Summary Free Text/Dictation Course reviewed with nursing staff Patient interviewed and examined Feeling fine, no nausea/vomiting No evidence of overt gastrointestinal bleeding Hemoglobin and hematocrit stable EGD planned for Monday Exam/Review of Systems Vital Signs Vitals Vital Signs Date Time Temp Pulse Resp B/P Pulse Ox O2 Delivery O2 Flow Rate FiO2 04/15/17 09:37 71 143/73 04/15/17 08:31 98.2 20 98 04/13/17 05:25 Room Air Intake and Output 04/14/17 04/14/17 04/15/17 15:00 23:00 07:00 Intake Total 840 ml 40 ml Balance 840 ml 40 ml Exam Constitutional: alert, oriented, well developed Psych: nl mood/affect, no complaints Head: atraumatic, normocephalic Eyes: EOMI, PERRL, nl conjunctiva, nl lids, nl sclera ENMT: nl external ears & nose, nl lips & teeth, nl nasal mucosa & septum Neck: non-tender, supple Respiratory: clear to auscultation, normal air movement Cardiovascular: nl pulses, regular rate and rhythm Gastrointestinal: nl liver, spleen, soft, tender (Moderate epigastric tenderness), No ascites, No bowel sounds, No distended, No firm, No mass, No rebound or guarding Musculoskeletal: nl extremities to inspection, nl gait and stance Extremities: normal pulses Neurological: VEHICLE CARE SPECIALIST II-XII intact, nl mental status, nl speech, nl strength Skin: nl turgor, No rash or lesions Lymph: nl lymph nodes Results Result Diagram: 04/15/17 0649 04/15/17 0649 Results 24 hrs Laboratory Tests Test 04/14/17 16:57 04/14/17 19:35 04/14/17 20:26 04/15/17 00:28 Bedside Glucose 85 219 Hemoglobin 10.4 L 10.1 L Hematocrit 30.6 L 28.5 L Test 04/15/17 02:54 04/15/17 06:49 04/15/17 08:04 04/15/17 09:30 Bedside Glucose 137 163 179 White Blood Count 5.9 # Red Blood Count 3.49 L Hemoglobin 10.6 L Hematocrit 29.4 L Mean Corpuscular Volume 84.2 Mean Corpuscular Hemoglobin 30.4 Mean Corpuscular Hemoglobin Concent 36.1 Red Cell Distribution Width 12.1 Platelet Count 124 L Mean Platelet Volume 11.8 H Neutrophils % 58.9 Lymphocytes % 29.0 Monocytes % 10.2 Eosinophils % 1.0 Basophils % 0.7 Nucleated Red Blood Cells % 0.0 Neutrophils # (Manual) 3 Lymphocytes # 1.7 Monocytes # 0.6 Eosinophils # 0.1 Basophils # 0.0 Nucleated Red Blood Cells # 0.0 Sodium Level 139 Potassium Level 4.4 Chloride Level 99 Carbon Dioxide Level 27 Anion Gap 17 H Blood Urea Nitrogen 24 H Creatinine 1.04 Glucose Level 170 Calcium Level 8.9 Medications Medications Current Medications Pantoprazole/ Sodium Chloride (Protonix Iv/NS) 100 ml @ 10 mls/hr Q10H IV Last administered on 04/14/17 20:31; Admin Dose 10 MLS/HR; Start 04/13/17 at 04 :00 Benazepril HCl (Lotensin) 20 mg DAILY PO Last administered on 04/15/17 09:35; Admin Dose 20 MG; Start 04/13/17 at 09:00 Acetaminophen/ Hydrocodone Bitart ([place] (5/325)) 1 tab Q6H PRN PO M Last administered on 04/13/17 17:55; Admin Dose 1 TAB; Start 04/13/17 at 03:00 Morphine Sulfate (morphine) 2 mg Q4H PRN IV SEVERE PAIN LEVEL 7-10 Last administered on 04/15/17 05:59; Admin Dose 2 MG; Start 04/13/17 at 03:00 Ondansetron HCl (Zofran Inj) 4 mg Q6H PRN IV NAUSEA AND/OR VOMITING Last administered on 04/15/17 06:07; Admin Dose 4 MG; Start 04/13/17 at 03:00 Amlodipine Besylate (Norvasc) 10 mg DAILY PO Last administered on 04/15/17 09: 35; Admin Dose 10 MG; Start 04/13/17 at 09:00 Hydralazine HCl (Apresoline) 10 mg Q6H PRN IV ELEVATED BLOOD PRESSURE; Start at 03:00 Diagnostic Test (Pha) (Accu-Chek) 1 ea 02 XX Last administered on 04/15/17 02: 12; Admin Dose 1 EA; Start 04/14/17 at 02:00 Insulin Glargine (Lantus) 12 unit DAILY@08 SC Last administered on 04/15/17 09 :37; Admin Dose 12 UNIT; Start 04/13/17 at 08:00 Diagnostic Test (Pha) (Accu-Chek) 1 ea 02 XX Last administered on 04/15/17 02: 12; Admin Dose 1 EA; Start 04/14/17 at 02:00 Miscellaneous Information 1 ea NOTE XX ; Start 04/13/17 at 03:30 Glucose (Glutose) 15 gm Q15M PRN PO DECREASED GLUCOSE; Start 04/13/17 at 03:30 Glucose (Glutose) 22.5 gm Q15M PRN PO DECREASED GLUCOSE; Start 04/13/17 at 03: 30 Dextrose (D50w Syringe) 25 ml Q15M PRN IV DECREASED GLUCOSE; Start 04/13/17 at 03:30 Dextrose (D50w Syringe) 50 ml Q15M PRN IV DECREASED GLUCOSE; Start 04/13/17 at 03:30 Glucagon (Glucagen) 1 mg Q15M PRN IM DECREASED GLUCOSE; Start 04/13/17 at 03:30 Glucose (Glutose) 15 gm Q15M PRN BUCCAL DECREASED GLUCOSE; Start 04/13/17 at 03 :30 TRICIA CHRISTENSEN MD Apr 15, 2017 11:53
[2017-04-15 13:15] LABS: HEMOGLOBIN 10.7 g/dl (14.0-18.0)
[2017-04-15 15:11] VITALS: BP_SYST 122; BP_SYST 155; BP_DIAS 73; BP_DIAS 87; RESP 20
[2017-04-15 18:52] LABS: HEMOGLOBIN 11.5 g/dl (14.0-18.0)
[2017-04-15 19:37] VITALS: BP 151/66; RESP 16
[2017-04-16] VITALS (24 sets, daily range): BP systolic 114–183; BP diastolic 63–84; PULSE 68–80; RESP 9–25
[2017-04-16 01:31] LABS: HEMATOCRIT 28.6 % (42.0-52.0); HEMOGLOBIN 10.1 g/dl (14.0-18.0)
[2017-04-16] MEDS: ACCU-CHEK XX SCH (02:00)
[2017-04-16] MEDS: PANTOPRAZOLE IV 80 MG in SOD CHLORIDE 0.9% 100 ML IV SCH (05:19)
[2017-04-16 06:52] LABS: HEMATOCRIT 27.5 % (42.0-52.0); HEMOGLOBIN 9.8 g/dl (14.0-18.0)
[2017-04-16] MEDS: INSULIN ASPART [NOVOLOG] 3 ML PEN SC SCH ×2 (08:15→12:28)
[2017-04-16] MEDS: INSULIN GLARGINE [LANtus] 3 ML PEN SC SCH (08:40)
[2017-04-16] MEDS: AMLODIPINE 10 MG TAB PO SCH (09:00)
[2017-04-16] MEDS: BENAZEPRIL 20 MG TAB PO SCH (09:00)
[2017-04-16] MEDS ORDERED: LIDOCAINE 100 MG SYRINGE ONE (09:21)
[2017-04-16] MEDS ORDERED: FENTAnyl 50 MCG/ML VIAL ONE (09:21)
[2017-04-16] MEDS ORDERED: FAMOTIDINE 20 MG INJ ONE (09:21)
[2017-04-16] MEDS ORDERED: PROPOFOL 40 ML ONE (09:21)
[2017-04-16] MEDS ORDERED: METOCLOPRAMIDE 10 MG INJ ONE (09:21)
[2017-04-16] MEDS ORDERED: EPHEDrine SULFATE 50 MG/5 ML SYG ONE (09:21)
--- NOTE | 2017-04-16 09:42 | OPPN ---
Date/Time of Note Date/Time of Note DATE: 04/16/17 TIME: 09:39 Proc Note GI Free Text/Dictation Preoperative Diagnosis: GI bleeding/melena/nausea and vomiting Postoperative Diagnosis: * Large amount of food retained in the stomach consistent with gastroparesis * Mild distal gastritis. Biopsies obtained. Rule out H. pylori infection * No evidence of gastric outlet obstruction * Otherwise normal EGD Plan: * Add Reglan 10 mg IV push every 6 hours * Switch Protonix drip to 40 mg daily * Obtain nuclear medicine gastric emptying study Procedure Performed: EGD with biopsies Surgeon: Tricia Pinzon MD Supply Chain Assistant: None Second Loom Cleaner: None Anesthesia/Sedation: Monitored anesthesia care/Dr Jimenez Tourniquet Time: NA Estimated Blood Loss: None Transfusion Required: No Specimens: Gastric antrum Grafts/Implants: None Tubes/Drains: NA Complications: None Pt. Condition Post Procedure: Stable Disposition: PACU After informed consent, with the patient/relatives understanding the procedure, its indications, potential risks and complications, including but not limited to : allergic reaction, bleeding, perforation or infection, and after all pertinent questions were answered to the patients satisfaction, the patient/ relatives signed witnessed informed consent. Following this, premedication was administered slowly IV push under careful cardiovascular and respiratory monitoring with pulse oximetry, automatic blood pressure, and utility specialist. Once the sedative effect was achieved the patient was place in the left lateral decubitus, the panendoscope was introduced and advanced under visual control. Careful examination of the upper gastrointestinal tract, both on insertion as well as withdrawal of the instrument disclosing the following findings: Esophagus: the mucosa of the entire esophagus was carefully examined and showed the following findings: [the mucosa appears within normal limits. There is no evidence of esophagitis, varices, neoplasm, or stricture. No Hiatal Hernia identified.] Stomach: Upon entrance to the stomach air was insufflated, the gastric avila distended normally. The mucosa of the fundus, body and antrum of the stomach was carefully examined both head-on and on retroflexion, and showed the following findings: There is a large amount of partially digested food occupying most of the gastric body. The distal stomach shows erythema in the antrum which is mild to moderate degree. Biopsies were obtained to rule out H. pylori infection. Otherwise the mucosa examined with limitations due to retained material appears within normal limits with no abnormalities. There is no evidence of ulcers or neoplasm.] Pylorus: The pylorus was carefully examined and showed the following findings: [ the pylorus appears patent and within normal limits, with no evidence of gastric outlet obstruction.] Duodenum: The duodenal mucosa was carefully examined in the duodenal bulb as well as the second portion of the duodenum and showed the following findings: [ the mucosa appears unremarkable with no evidence of duodenitis, ulcer or neoplasm.] Procedure date: Apr 16, 2017 TRICIA PINZON MD Apr 16, 2017 09:42
[2017-04-16] MEDS ORDERED: METOCLOPRAMIDE 10 MG INJ IV SCH (10:30)
[2017-04-16] MEDS ORDERED: ONDANSETRON 4 MG INJ IV PRN (11:00)
[2017-04-16] MEDS ORDERED: EPHEDRINE SULFATE 5 MG IV PRN (11:00)
[2017-04-16] MEDS ORDERED: hydrALAzine 5 MG IV PRN (11:00)
[2017-04-16] MEDS ORDERED: FENTAnyl 25 MCG IV PRN (11:00)
[2017-04-16] MEDS ORDERED: LABETALOL 5 MG IV PRN (11:00)
[2017-04-16 12:33] LABS: HEMATOCRIT 31.5 % (42.0-52.0); HEMOGLOBIN 11.2 g/dl (14.0-18.0)
[2017-04-16] MEDS ORDERED: AMLO-147 PO (14:06)
[2017-04-16] MEDS ORDERED: METO5TAB58 PO (14:06)
[2017-04-16] MEDS ORDERED: BENA40TA41 PO (14:06)
--- NOTE | 2017-04-16 14:07 | PDOCDIS ---
Discharge Instructions CONDITION Patient Condition: Good HOME CARE INSTRUCTIONS: Special Diet: Carb controlled ACTIVITY: Activity Restrictions: No Restrictions FOLLOW UP/APPOINTMENTS Follow-up Plan F/U WITH YOUR PCP IN 1-2 WEEKS LORIE CASTELLANOS Apr 16, 2017 14:07
--- NOTE | 2017-04-16 18:49 | DS ---
Date/Time of Note Date/Time of Note DATE: 04/16/17 TIME: 18:44 Discharge Summary Admission/Discharge Info Admit Date/Time Apr 13, 2017 at 01:05 Discharge Date/Time Apr 16, 2017 at 17:50 Discharge Diagnosis 1. Upper GI bleed with nausea -Patient is status post EGD with clipping of gastric ulcer at the outside hospital 3 months ago -GI consult appreciated, EGD showed no gastric bleeding, gastroparesis was noted -DC with Reglan 2. Insulin-dependent diabetes -A1c 8.2 -Continue home regimen 3. Hypertension: Stable -Increased meds while in house, DC with benazepril 40 and Norvasc 10 4. History of dyslipidemia -Resume home med Patient Condition: Good Hospital Course Patient is a 51-year-old male with a history of hypertension, insulin-dependent diabetes, dyslipidemia, and a gastric ulcer who initially presented to the outside hospital complaining of vomiting blood. Patient was transferred to [facility] for insurance reason. He stated that 3 months ago he had similar episodes of hematemesis for which he underwent EGD with clipping of his gastric ulcers. He said he went back to an outside hospital 2 weeks ago for nonbilious nonbloody vomiting. At that time, an EGD was not done. He said that he was diagnosed with H-pylori 2 years ago in his home country, [facility]. Patient denied alcohol abuse. She was seen by GI and had an EGD that showed gastroparesis with no evidence of gastric ulcers. Patient was started Reglan and his nausea did resolve patient was felt to be stable for discharge. Of note patient's blood pressure medication regimen was increased while in-house he was discharged with this new regimen of benazepril 40 and Norvasc 10. On day of discharge patient had no further complaints felt significantly better, his labs and physical exam were within normal limits and questions were answered. . Home Meds Active Scripts Metoclopramide* (Reglan*) 5 Mg Tablet, 5 MG PO AC MEALS AND BEDTIME Y for NAUSEA AND/OR VOMITING, #30 TAB 1 Refill Prov:LORIE CASTELLANOS 04/16/17 Benazepril Hcl* (Benazepril Hcl*) 40 Mg Tablet, 40 MG PO DAILY, #60 TAB 1 Refill Prov:LORIE CASTELLANOS 04/16/17 Amlodipine Besylate* (Amlodipine Besylate*) 10 Mg Tablet, 10 MG PO DAILY, #60 TAB 1 Refill Prov:LORIE CASTELLANOS 04/16/17 Reported Medications Insulin Glargine* (Lantus*) 100 Unit/Ml Soln, 10 UNIT SC QHS, #1 VIAL 03/03/17 Simvastatin* (Zocor*) 20 Mg Tablet, 20 MG PO QHS, #30 TAB 03/03/17 [Asa] No Conflict Check 11/23/10 [Januvia] No Conflict Check 11/23/10 [tylenol] No Conflict Check 11/23/10 Discontinued Reported Medications Benazepril Hcl* (Benazepril Hcl*) 5 Mg Tablet, 5 MG PO DAILY, #30 TAB 03/03/17 Follow-up Plan Follow-up with PCP in 1-2 weeks Primary Care Provider [facility] Time spent on discharge: > 30 minutes LORIE CASTELLANOS Apr 16, 2017 18:49
[2017-04-17] MEDS ORDERED: PANTOPRAZOLE 40 MG INJ IV SCH (06:00)
== END 2017-04-16 17:50 | disposition home or self-care (01) | DRG 379 ==
LOC: TEL 04-13 01:05 → MS2 04-15 05:46
PROVIDERS: ADMIT Internal Medicine; ATTEND Internal Medicine
PROC: 0DB68ZX Excision of Stomach, Via Natural or Artificial Opening Endoscopic, Diagnostic (ICD-10-PCS; principal; 2017-04-16 09:30)
DX: K92.0 Hematemesis (principal); R13.10 Dysphagia, unspecified; K31.84 Gastroparesis; I10 Essential (primary) hypertension; E11.9 Type 2 diabetes mellitus without complications; D64.9 Anemia, unspecified; Z79.4 Long term (current) use of insulin; E78.5 Hyperlipidemia, unspecified; K29.70 Gastritis, unspecified, without bleeding
CPT/HCPCS: 80048; 80053; 82728; 82962; 83036; 83540; 83735; 84100; 85014; 85018; 85025; 88305; 88312; C9113; J0360; J1815; J2001; J2270; J2405; J2765; J3010

== ENCOUNTER 2017-12-08 09:21 | Emergency (ER) | END 2017-12-08 13:12 | disposition home or self-care (01) ==

== ENCOUNTER 2018-04-17 13:27 | Emergency (ER) | END 2018-04-18 00:51 | disposition home or self-care (01) ==

== ENCOUNTER 2018-04-19 19:31 | Inpatient (IN) | END 2018-04-21 18:50 | disposition home or self-care (01) | DRG 379 ==

== ENCOUNTER 2018-05-09 11:33 | Inpatient (IN) | END 2018-05-10 16:37 | disposition home or self-care (01) | DRG 684 ==

== ENCOUNTER 2018-06-05 18:03 | Emergency (ER) | END 2018-06-05 20:34 | disposition home or self-care (01) ==

== ENCOUNTER 2018-11-14 13:00 | Inpatient (IN) | payer OTHER ==
[~2018-11-14] VITALS: Ht 144.8 cm; Wt 70.0 kg
[~2018-11-14 13:00] MED LIST changes: +AMLO5TAB4 PO; -ASA; -Amaryl; +BENA20TA4 PO; -BENA5TAB2 PO; -IBUP-1542 PO; -Januvia; +LORA10TA3 PO; +LOSA25TA12 PO; +OMEP40CA6 PO; -SIMV20TA PO; -tylenol
[2018-11-14 13:07] VITALS: Ht 144.8 cm; Wt 70.0 kg
[2018-11-14] MEDS ORDERED: SOD CHLORIDE 0.9% 500 ML IV STA (14:25)
[2018-11-14] MEDS ORDERED: OMEP40CA6 PO (16:07)
[2018-11-14] MEDS ORDERED: SIMV20TA PO (16:07)
[2018-11-14] MEDS ORDERED: LANT3I SC (16:08)
[2018-11-14] MEDS ORDERED: METO-429 PO (16:08)
--- NOTE | 2018-11-14 18:02 | ERD ---
ER Documentation Chief Complaint Chief Complaint CP WITH SYNCOPAL EVENT TODAY & SAT HPI 53-year-old male presents the emergency department complaining of syncope. Patient states that over the last 4 or 5 days, patient has had at least 3 episodes of syncope. Patient has a nonspecific chest pain associated with that without shortness of breath. He describes no palpitations. He describes no fevers or chills, hemoptysis or shortness of breath. He reports no headache or neurologic symptoms associated with the syncope. After the third episode today he came to the emergency department for evaluation. Upon arrival, he is asymptomatic. ROS All systems reviewed and are negative except as per history of present illness. Medications Home Meds Reported Medications Insulin Glargine* (Lantus*) 100 Unit/Ml Soln, 0 SC BID NEEDED, #1 VIAL 5-10 UNITS 11/14/18 Metoprolol Tartrate* (Lopressor*) 50 Mg Tab, 50 MG PO BID, #60 TAB 11/14/18 Simvastatin* (Zocor*) 20 Mg Tablet, 20 MG PO QHS, #30 TAB 11/14/18 Omeprazole* (Omeprazole*) 40 Mg Capsule.dr, 40 MG PO DAILY, #30 CAP 11/14/18 Discontinued Reported Medications Loratadine* (Loratadine*) 10 Mg Tablet, 10 MG PO DAILY, #30 TAB 06/05/18 Losartan Potassium* (Losartan Potassium*) 25 Mg Tablet, 25 MG PO DAILY, TAB 06/05/18 Insulin Glargine* (Lantus*) 100 Unit/Ml Soln, 10 UNIT SC BID, #1 VIAL 05/09/18 Amlodipine Besylate* (Norvasc*) 5 Mg Tablet, 5 MG PO DAILY, TAB 04/19/18 Benazepril Hcl* (Benazepril Hcl*) 20 Mg Tablet, 20 MG PO BID, #60 TAB 04/17/18 Discontinued Scripts Omeprazole* (Omeprazole*) 40 Mg Capsule.dr, 40 MG PO AC BREAKFAST for 90 Days, #90 CAP Prov:ANGELIC LU MD 04/21/18 Allergies Allergies: Coded Allergies: No Known Allergies (Verified Allergy, Mild, 11/14/18) PMhx/Soc History of Surgery: No Anesthesia Reaction: No Hx Neurological Disorder: No Hx Respiratory Disorders: No Hx Cardiac Disorders: Yes (HTN) Hx Psychiatric Problems: No Hx Miscellaneous Medical Probl: No (HIGH CHOLESTEROL,GASTRITIS) Hx Alcohol Use: No Hx Substance Use: No Hx Tobacco Use: No Smoking Status: Never smoker FmHx Noncontributory for chief complaint Physical Exam Vitals Vital Signs Date Temp Pulse Resp B/P (MAP) Pulse Ox O2 O2 Flow FiO2 Time Delivery Rate 11/14/18 62 18 186/93 98 17:15 (124) 11/14/18 68 18 154/86 98 13:45 (108) 11/14/18 97.8 80 18 179/91 99 13:07 (120) Physical Exam GENERAL: The patient is well developed and appropriate for usual state of health in no apparent distress HEENT: Pupils equal, round, and reactive to light. EOMI. There is no scleral icterus. NECK: C-spine is soft and supple, there is no meningismus. There is no cervical lymphadenopathy. LUNGS: Clear to auscultation bilaterally. There are no rales, wheezes or rhonchi. HEART: Regular rate and rhythm, no murmurs, clicks, rubs or gallops. ABDOMEN: Soft, non-tender, non-distended. There are bowel sounds in all four quadrants. No rebound or guarding. EXTREMITIES: There is no peripheral cyanosis or edema. No focal swelling or erythema. NEURO: The patient moves all four extremities with 5/5 strength. Cranial nerves II - XII are intact. Normal gait. Alert and oriented SKIN: There is no apparent rash or petechiae. HEME/LYMPHATIC: There is no evidence of excessive bruising or lymphedema. PSYCHIATRIC: The patient does not appear anxious or depressed. Result Diagram: 11/14/18 1454 11/14/18 1630 Results 24 hrs Laboratory Tests Test 11/14/18 14:54 11/14/18 15:03 11/14/18 16:30 White Blood Count 8.8 10^3/ul Red Blood Count 3.85 10^6/ul Hemoglobin 11.3 g/dl Hematocrit 33.0 % Mean Corpuscular Volume 85.7 fl Mean Corpuscular Hemoglobin 29.4 pg Mean Corpuscular 34.2 g/dl Hemoglobin Concent Red Cell Distribution Width 13.0 % Platelet Count 130 10^3/UL Mean Platelet Volume 12.6 fl Immature Granulocytes % 0.100 % Neutrophils % 70.4 % Lymphocytes % 17.7 % Monocytes % 7.4 % Eosinophils % 3.7 % Basophils % 0.7 % Nucleated Red Blood Cells % 0.0 /100WBC Immature Granulocytes # 0.010 10^3/ul Neutrophils # 6.2 10^3/ul Lymphocytes # 1.6 10^3/ul Monocytes # 0.7 10^3/ul Eosinophils # 0.3 10^3/ul Basophils # 0.1 10^3/ul Nucleated Red Blood Cells # 0.0 10^3/ul Sodium Level 140 mmol/L Potassium Level 6.3 mmol/L 5.3 mmol/L Chloride Level 109 mmol/L Carbon Dioxide Level 22 mmol/L Anion Gap 9 Blood Urea Nitrogen 31 mg/dl Creatinine 1.65 mg/dl Est Glomerular Filtrat Rate mL/min 44 mL/min Glucose Level 155 mg/dl Calcium Level 9.6 mg/dl Troponin I < 0.012 ng/ml Bedside Glucose 137 mg/dL Current Medications Medications Dose Sig/Onel Start Time Status Last (Trade) Ordered Route PRN Stop Time Admin Dose Reason Admin Sodium 500 ml @ Q1H STAT 11/14/18 DC 11/14/18 Chloride 500 mls/hr IV 14:25 14:55 11/14/18 15:24 Procedures/MDM Patient was taken to a room, seen and evaluated. Comfort measures were initiated. Diagnostic tests were ordered and reviewed. 3 LEAD RHYTHM STRIP: Normal sinus rhythm without ectopy EK lead EKG reviewed by myself: Normal Sinus Rhythm with PACs Normal Sargeant and intervals T wave inversions in the inferior and lateral leads. No ST elevation Impression: Normal EKG Repeat EKG: RADIOLOGY: Reviewed with the radiologist CONSULTATION: Hospitalist was notified for admission. Dr. Zapata was consulted. REEVALUATION: Patient remained hemo-dynamically stable in the emergency department and chest pain-free. MEDICAL DECISION MAKIN-year-old male presents the emergency room with 3 separate syncopal episodes that I am concerned might be cardiac. His EKG is markedly abnormal with both ischemic changes as well as arrhythmic changes. Patient has been asymptomatic in the emergency department with no obvious a rrhythmia, but this is obviously concerning for cardiac syncope. His potassium is noted to be elevated, but he has no peak T waves and this does not appear to be significant at this time. Patient will be admitted to the hospital for cardiac monitoring, cardiology evaluation. Departure Diagnosis: Primary Impression: Syncope Condition: Jeromy WOODRUFFABI Nov 14, 2018 18:02
[2018-11-14] MEDS ORDERED: INSULIN REGULAR, HUMAN 100 UNIT/1 ML 3ML VIAL IVP STA (18:19)
[2018-11-14] MEDS ORDERED: ONDANSETRON 4 MG INJ IV PRN (18:30)
[2018-11-14] MEDS ORDERED: NACL 0.9% 3 ML SYG IV SCH (18:30)
[2018-11-14] MEDS ORDERED: ASPIRIN (EC) 325 MG TAB PO ONE (18:30)
[2018-11-14] MEDS ORDERED: DEXTROSE 50% 50 ML SYRINGE IV PRN ×3 (18:30→19:30)
[2018-11-14] MEDS: hydrALAzine 20 MG INJ IV PRN (18:43)
--- NOTE | 2018-11-14 18:59 | HP ---
Date/Time of Note Date/Time of Note DATE: 11/14/18 TIME: 18:59 Assessment/Plan VTE Prophylaxis SCD applied (from Nsg): Yes Pharmacological prophylaxis: LMWH Lines/Catheters IV Catheter Type (from Nrsg): Saline Lock Assessment/Plan Assessment/Plan 1. Syncopal episodes - appears to be cardiac in nature although did admit to dizziness prior to episodes. Possibly due to uncontrolled HTN given BP was in the 200s upon arrival with near syncopal episode this am - Will check CT head for acute abnormalities given had head trauma during episode yesterday. Unable to perform any contrast studies at this time given JOSÉ ANTONIO - carotid dopplers ordered - Cardiology consultation placed. ECHO performed 05/09/18 without any structural abnormalities. Will hold off on ordering repeat based on Cardiology input 2. Hypertensive emergency - found with SBP 200s in the ED - continue home medications and will adjust as needed - most likely contributing to syncopal episodes 3. JOSÉ ANTONIO - will check renal US - IV NS on board - will avoid nephrotoxic agents 4. Acute chest pain - will check trops - most likely demand in setting of uncontrolled BP - resolved prior to ED presentation 5. DM - will check A1c - continue home lantus dose - ISS and accuchecks 6. hyperkalemia - given insulin/dextrose - no EKG changes appreciated 7. Diet - Cardiac 8. DVT ppx - LMWH 9. Disposition - Admit to telemetry for syncopal workup and treatment of hypertensive emergency Result Diagram: 11/14/18 1454 11/14/18 1630 Results 24hrs Laboratory Tests Test 11/14/18 14:54 11/14/18 15:03 11/14/18 16:30 11/14/18 18:52 White Blood Count 8.8 Red Blood Count 3.85 #L Hemoglobin 11.3 #L Hematocrit 33.0 #L Mean Corpuscular 85.7 Volume Mean Corpuscular 29.4 Hemoglobin Mean Corpuscular 34.2 Hemoglobin Concent Red Cell 13.0 Distribution Width Platelet Count 130 L Mean Platelet Volume 12.6 H Immature 0.100 Granulocytes % Neutrophils % 70.4 Lymphocytes % 17.7 Monocytes % 7.4 Eosinophils % 3.7 Basophils % 0.7 Nucleated Red Blood 0.0 Cells % Immature 0.010 Granulocytes # Neutrophils # 6.2 Lymphocytes # 1.6 Monocytes # 0.7 Eosinophils # 0.3 Basophils # 0.1 Nucleated Red Blood 0.0 Cells # Sodium Level 140 Potassium Level 6.3 *H 5.3 H Chloride Level 109 Carbon Dioxide Level 22 Anion Gap 9 Blood Urea Nitrogen 31 H Creatinine 1.65 H Est Glomerular 44 L Filtrat Rate mL/min Glucose Level 155 Calcium Level 9.6 Troponin I < 0.012 Bedside Glucose 137 109 HPI/ROS Admit Date/Time Admit Date/Time 11/14/18 1900 Hx of Present Illness 53 yo F with PMH HTN and DM presented to ED after experiencing 3 syncopal episodes. Patient states he experienced the first episode on Monday, then again yesterday, and then this am. Patient states he would feel dizzy and then pass out for about 2-3 minutes he believes. Does admit to head trauma during yesterdays syncopal episode. He denies any associated headache, nausea, vomiting, shortness of breath, abdominal pain, or urinary issues. Denies any loss of bladder or bowel or soreness of tongue. Patient does admit to near syncopal episode this am with associated chest pain, pressure like, lasting 30 mins, and nonradiating. Did not take anything to make the pain go away. nothing worsened pain. In ED patient found with elevated K and BP 200s. Denies any chest pain, shortness of breath, palpations, nausea, vomiting, dizziness, or abdominal issues. He does admit to discomfort in right arm and lower legs bilaterally since this morning. ROS All 12 systems reviewed and pertinent positives as per HPI. All others negative. Constitutional: No chills, No fatigue, No nausea Eyes: No discharge ENT: No congestion Respiratory: No cough, No shortness of breath, No sputum, No wheezing Cardiovascular: chest pain; No lightheadedness, No palpitations Gastrointestinal: No pain, No constipation, No nausea, No vomiting Genitourinary: no complaints Musculoskeletal: no complaints Skin: No bruising, No laceration, No rash Neurologic: dizziness, syncope Endocrine: no complaints Lymphatic: no complaints Psychological: nl mood/affect Immunologic: no complaints PMH/Family/Social Past Medical History Medical History: diabetes, hypertension Medications Current Medications Metoprolol Tartrate (Lopressor) 50 mg BID PO ; Start 11/14/18 at 21:00 Pantoprazole (Protonix Tab) 40 mg DAILY@0600 PO ; Start 11/15/18 at 06:00 Atorvastatin Calcium (Lipitor) 10 mg QHS PO ; Start 11/14/18 at 21:00 Sodium Chloride 1,000 ml @ 75 mls/hr [id number] IV ; Start 11/14/18 at 18:12 IV Flush (NS 3 ml) 3 ml PER PROTOCOL IV ; Start 11/14/18 at 18:30 Ondansetron HCl (Zofran Inj) 4 mg Q6H PRN IV NAUSEA/VOMITING; Start 11/14/18 at 18:30 Acetaminophen (Tylenol Tab) 650 mg Q6H PRN PO .PAIN 1-3 OR TEMP; Start 11/14/18 at 18:30 Enoxaparin Sodium (Lovenox) 30 mg DAILY SC ; Start 11/15/18 at 09:00 Dextrose (D50w Syringe) ONCE PRN IV DECREASED GLUCOSE; Start 11/14/18 at 18:30; Stop 11/15/18 at 18:29 Hydralazine HCl (Apresoline) 10 mg Q4H PRN IV SBP >170 Last administered on 11/14/18at 18:43; Admin Dose 10 MG; Start 11/14/18 at 18:30 Coded Allergies: No Known Allergies (Verified Allergy, Mild, 11/14/18) Past Surgical History Past Surgical Hx: no surgical history Family History Significant Family History: no pertinent family hx Social History Alcohol Use: none Smoking Status: Never smoker Drug Use: none Exam/Review of Systems Vital Signs Vitals Vital Signs Date Temp Pulse Resp B/P (MAP) Pulse Ox O2 O2 Flow FiO2 Time Delivery Rate 11/14/18 62 18 186/93 98 17:15 (124) 11/14/18 97.8 13:07 Exam Exam General: no acute distress. awake and answering questions appropriately. HEENT: NC/AT. PERRLA. EOM intact. Neck: supple Chest: nontender CVS: S1, S2, regular rate and rhythm, no murmurs Lungs: Clear to auscultation bilaterally. no wheezing or rhonchi Abd: soft, nontender, nondistended, +BS, no rebound or guarding Ext: no edema, cyanosis, or clubbing Skin: no rashes or lesions appreciated Neuro: no focal deficits, motor and sensory intact Additional Comments Home medications reviewed PROCEDURE: XR Chest AP portable CLINICAL INDICATION: Experiencing syncope TECHNIQUE: An AP portable radiograph of the chest was submitted. COMPARISON: 05/09/2018 FINDINGS: Support Hardware: None Cardiovascular: Although the heart remains normal in size, the pulmonary vasculature appears mildly congested. Lung Cintron: A suboptimal inspiration compresses lung parenchyma exaggerating the bronchovascular markings. No discrete infiltrate or nodule is evident. Pleural Spaces: No pneumothorax or pleural effusion is identified. Osseous Structures: The osseous structures appear intact. Soft Tissues: The soft tissues appear unremarkable. IMPRESSION: 1. Although the heart remains normal in size, the pulmonary vasculature now appears mildly congested. 2. A suboptimal inspiration exaggerates the perihilar bronchovascular markings but no discrete infiltrate, nodule, effusion, or pneumothorax is evident. Physician Marge Date Time Electronically viewed and signed by Physician Marge on 11/14/2018 14:42 WALLACE DAMON MD Nov 14, 2018 18:59
[2018-11-14] MEDS: SOD CHLORIDE 0.9% 1,000 ML IV SCH (19:10)
[2018-11-14] MEDS ORDERED: GLUCOSE GEL 15 GRAM TUBE PO PRN ×2 (19:30)
[2018-11-14] MEDS ORDERED: GLUCOSE GEL 15 GRAM TUBE BUCCAL PRN (19:30)
[2018-11-14] MEDS ORDERED: GLUCAGON 1 MG INJ IM PRN (19:30)
[2018-11-14 21:52] VITALS: BP 127/65; PULSE 93; RESP 20
[2018-11-14 21:57] VITALS: PULSE 81
[2018-11-14] MEDS: ATORVASTATIN 10 MG TAB PO SCH (22:50)
[2018-11-14] MEDS: METOPROLOL 50 MG TAB PO SCH (22:51)
[2018-11-14] MEDS: INSULIN ASPART [NOVOLOG] 3 ML PEN SC SCH (23:21)
[2018-11-15] VITALS (12 sets, daily range): BP systolic 123–176; BP diastolic 60–89; PULSE 61–94; RESP 16–18
[2018-11-15] MEDS: hydrALAzine 20 MG INJ IV PRN ×2 (04:26→14:48)
[2018-11-15] MEDS: PANTOPRAZOLE (EC) 40 MG TAB PO SCH (06:46)
[2018-11-15] MEDS: INSULIN ASPART [NOVOLOG] 3 ML PEN SC SCH ×4 (07:55→20:59)
[2018-11-15] MEDS: METOPROLOL 50 MG TAB PO SCH ×2 (08:08→20:24)
[2018-11-15] MEDS: SOD CHLORIDE 0.9% 1,000 ML IV SCH (08:08)
[2018-11-15] MEDS: INSULIN GLARGINE [LANTus] (100 UNITS/ML) SYG SC SCH (08:10)
[2018-11-15] MEDS: ENOXAPARIN 30 MG/0.3 ML SYG SC SCH (08:20)
[2018-11-15] MEDS ORDERED: NA POLYST SULFON 15 GM/60 ML BTL PO ONE (09:30)
--- NOTE | 2018-11-15 15:41 | PN ---
Date/Time of Note Date/Time of Note DATE: 11/15/18 TIME: 15:37 Assessment/Plan VTE Prophylaxis Risk score (from Nsg)>0 risk: 2 SCD applied (from Nsg): Yes Pharmacological prophylaxis: LMWH Lines/Catheters IV Catheter Type (from Nrsg): Peripheral IV Assessment/Plan Assessment/Plan 1. Syncopal episodes - most likely secondary to uncontrolled BP - Carotid US negative as well as CT scan head for acute abnormalities or occlusions - Cardiology consultation placed by ED physician and awaiting recommendations. ECHO performed 05/09/18 without any structural abnormalities 2. Hypertensive emergency - found with SBP 200s in the ED - continue home medications and added hydralazine TID. Will adjust for better control - most likely contributing to syncopal episodes 3. JOSÉ ANTONIO- - renal US negative for obstruction. Concerns for urinary retention but patient denies any issues - IV NS on board - will avoid nephrotoxic agents 4. Acute chest pain- resolved - trops negative - most likely demand in setting of uncontrolled BP 5. DM - A1c noted - continue home lantus dose - ISS and accuchecks 6. hyperkalemia - will give Kayexalate - no EKG changes appreciated 7. Disposition - Continue adjusting BP medications for better control prior to d/c home Result Diagram: 11/15/18 0603 11/15/18 0603 Results 24hrs Laboratory Tests Test 11/14/18 16:30 11/14/18 18:52 11/14/18 18:55 11/14/18 19:21 Potassium Level 5.3 H Bedside Glucose 109 281 H Hemoglobin A1c 6.7 H Creatine Kinase 97 Creatine Kinase 1.3 Index Creatinine Kinase MB 1.26 (Mass) Troponin I < 0.012 Test 11/14/18 20:43 11/14/18 22:45 11/15/18 00:58 11/15/18 02:16 Bedside Glucose 103 193 131 Creatine Kinase 79 Creatine Kinase 1.4 Index Creatinine Kinase MB 1.14 (Mass) Troponin I 0.018 Test 11/15/18 06:01 11/15/18 06:03 11/15/18 07:51 11/15/18 11:43 Prostate Specific 0.6 Antigen White Blood Count 7.5 Red Blood Count 3.43 L Hemoglobin 9.8 L Hematocrit 29.6 L Mean Corpuscular 86.3 Volume Mean Corpuscular 28.6 L Hemoglobin Mean Corpuscular 33.1 Hemoglobin Concent Red Cell 12.8 Distribution Width Platelet Count 121 L Mean Platelet Volume 12.8 H Immature 0.500 H Granulocytes % Neutrophils % 62.4 Lymphocytes % 23.5 Monocytes % 8.5 Eosinophils % 4.6 Basophils % 0.5 Nucleated Red Blood 0.0 Cells % Immature 0.040 H Granulocytes # Neutrophils # 4.7 Lymphocytes # 1.8 Monocytes # 0.6 Eosinophils # 0.3 Basophils # 0.0 Nucleated Red Blood 0.0 Cells # Sodium Level 139 Potassium Level 5.5 H Chloride Level 113 H Carbon Dioxide Level 20 L Anion Gap 6 Blood Urea Nitrogen 28 H Creatinine 1.57 H Est Glomerular 47 L Filtrat Rate mL/min Glucose Level 97 # Calcium Level 8.8 Magnesium Level 1.8 Total Bilirubin 0.6 Direct Bilirubin 0.00 Indirect Bilirubin 0.6 Aspartate Amino 26 Transf (AST/SGOT) Alanine 10 L Aminotransferase (AL T/SGPT) Alkaline Phosphatase 86 Total Protein 6.6 Albumin 3.4 Globulin 3.20 Albumin/Globulin 1.06 Ratio Bedside Glucose 114 108 Subjective 24 Hr Interval Summary Free Text/Dictation Patient states he's feeling a little better but still with cramping in lower extremities. Discussed K still elevated and BP uncontrolled. Exam/Review of Systems Exam Vitals Vital Signs Date Temp Pulse Resp B/P (MAP) Pulse Ox O2 O2 Flow FiO2 Time Delivery Rate 11/15/18 98.4 68 16 176/89 98 Room Air 15:11 (118) Intake and Output 11/14/18 11/14/18 11/15/18 1515:00 23:00 07:00 IntakeIntake Total 200 ml BalanceBalance 200 ml Exam General: no acute distress. awake and answering questions appropriately. CVS: S1, S2, regular rate and rhythm, no murmurs Lungs: Clear to auscultation bilaterally. no wheezing or rhonchi Abd: soft, nontender, nondistended, +BS, no rebound or guarding Ext: no edema, cyanosis, or clubbing Skin: no rashes or lesions appreciated Neuro: no focal deficits, motor and sensory intact Results Results 24hrs Laboratory Tests Test 11/14/18 16:30 11/14/18 18:52 11/14/18 18:55 11/14/18 19:21 Potassium Level 5.3 H Bedside Glucose 109 281 H Hemoglobin A1c 6.7 H Creatine Kinase 97 Creatine Kinase 1.3 Index Creatinine Kinase MB 1.26 (Mass) Troponin I < 0.012 Test 11/14/18 20:43 11/14/18 22:45 11/15/18 00:58 11/15/18 02:16 Bedside Glucose 103 193 131 Creatine Kinase 79 Creatine Kinase 1.4 Index Creatinine Kinase MB 1.14 (Mass) Troponin I 0.018 Test 11/15/18 06:01 11/15/18 06:03 11/15/18 07:51 11/15/18 11:43 Prostate Specific 0.6 Antigen White Blood Count 7.5 Red Blood Count 3.43 L Hemoglobin 9.8 L Hematocrit 29.6 L Mean Corpuscular 86.3 Volume Mean Corpuscular 28.6 L Hemoglobin Mean Corpuscular 33.1 Hemoglobin Concent Red Cell 12.8 Distribution Width Platelet Count 121 L Mean Platelet Volume 12.8 H Immature 0.500 H Granulocytes % Neutrophils % 62.4 Lymphocytes % 23.5 Monocytes % 8.5 Eosinophils % 4.6 Basophils % 0.5 Nucleated Red Blood 0.0 Cells % Immature 0.040 H Granulocytes # Neutrophils # 4.7 Lymphocytes # 1.8 Monocytes # 0.6 Eosinophils # 0.3 Basophils # 0.0 Nucleated Red Blood 0.0 Cells # Sodium Level 139 Potassium Level 5.5 H Chloride Level 113 H Carbon Dioxide Level 20 L Anion Gap 6 Blood Urea Nitrogen 28 H Creatinine 1.57 H Est Glomerular 47 L Filtrat Rate mL/min Glucose Level 97 # Calcium Level 8.8 Magnesium Level 1.8 Total Bilirubin 0.6 Direct Bilirubin 0.00 Indirect Bilirubin 0.6 Aspartate Amino 26 Transf (AST/SGOT) Alanine 10 L Aminotransferase (AL T/SGPT) Alkaline Phosphatase 86 Total Protein 6.6 Albumin 3.4 Globulin 3.20 Albumin/Globulin 1.06 Ratio Bedside Glucose 114 108 Medications Medication Current Medications Metoprolol Tartrate (Lopressor) 50 mg BID PO Last administered on 11/15/18at 08:08; Admin Dose 50 MG; Start 11/14/18 at 21:00 Pantoprazole (Protonix Tab) 40 mg DAILY@0600 PO Last administered on 11/15/18at 06:46; Admin Dose 40 MG; Start 11/15/18 at 06:00 Atorvastatin Calcium (Lipitor) 10 mg QHS PO Last administered on 11/14/18at 22:50; Admin Dose 10 MG; Start 11/14/18 at 21:00 Sodium Chloride 1,000 ml @ 75 mls/hr [id number] IV Last administered on 11/15/18at 08:08; Admin Dose 75 MLS/HR; Start 11/14/18 at 18:12 IV Flush (NS 3 ml) 3 ml PER PROTOCOL IV ; Start 11/14/18 at 18:30 Ondansetron HCl (Zofran Inj) 4 mg Q6H PRN IV NAUSEA/VOMITING; Start 11/14/18 at 18:30 Acetaminophen (Tylenol Tab) 650 mg Q6H PRN PO .PAIN 1-3 OR TEMP; Start 11/14/18 at 18:30 Enoxaparin Sodium (Lovenox) 30 mg DAILY SC Last administered on 11/15/18at 08:20; Admin Dose 30 MG; Start 11/15/18 at 09:00 Dextrose (D50w Syringe) ONCE PRN IV DECREASED GLUCOSE Last administered on 11/14/18at 19:06; Admin Dose 50 ML; Start 11/14/18 at 18:30; Stop 11/15/18 at 18:29 Hydralazine HCl (Apresoline) 10 mg Q4H PRN IV SBP >170 Last administered on 11/15/18at 14:48; Admin Dose 10 MG; Start 11/14/18 at 18:30 Insulin Glargine (Lantus) 10 units AM SC Last administered on 11/15/18at 08:10; Admin Dose 10 UNITS; Start 11/15/18 at 09:00 Insulin Aspart (Novolog Insulin Pen) NOVOLOG *MILD* ALGORITHM WITH MEALS BEDTIME SC Last administered on 11/14/18at 23:21; Admin Dose 1 UNIT; Start 11/14/18 at 21:00 Miscellaneous Information 1 ea NOTE XX ; Start 11/14/18 at 19:30 Glucose (Glutose) 15 gm Q15M PRN PO DECREASED GLUCOSE; Start 11/14/18 at 19:30 Glucose (Glutose) 22.5 gm Q15M PRN PO DECREASED GLUCOSE; Start 11/14/18 at 19:30 Dextrose (D50w Syringe) 25 ml Q15M PRN IV DECREASED GLUCOSE; Start 11/14/18 at 19:30 Dextrose (D50w Syringe) 50 ml Q15M PRN IV DECREASED GLUCOSE; Start 11/14/18 at 19:30 Glucagon (Glucagen) 1 mg Q15M PRN IM DECREASED GLUCOSE; Start 11/14/18 at 19:30 Glucose (Glutose) 15 gm Q15M PRN BUCCAL DECREASED GLUCOSE; Start 11/14/18 at 19:30 Hydralazine HCl (Apresoline) 10 mg Q8 PO Last administered on 11/15/18at 11:05; Admin Dose 10 MG; Start 11/15/18 at 10:30 WALLACE DAMON MD Nov 15, 2018 15:41
[2018-11-15] MEDS: ACETAMINOPHEN 325 MG TAB PO PRN (17:29)
[2018-11-15] MEDS: ATORVASTATIN 10 MG TAB PO SCH (20:24)
[2018-11-16] VITALS (11 sets, daily range): BP systolic 146–203; BP diastolic 65–90; PULSE 57–71; RESP 16–19
[2018-11-16] MEDS: SOD CHLORIDE 0.9% 1,000 ML IV SCH ×2 (00:08→10:12)
[2018-11-16] MEDS: PANTOPRAZOLE (EC) 40 MG TAB PO SCH (05:43)
[2018-11-16] MEDS: METOPROLOL 50 MG TAB PO SCH ×2 (08:08→20:27)
[2018-11-16] MEDS: INSULIN GLARGINE [LANTus] (100 UNITS/ML) SYG SC SCH (08:19)
[2018-11-16] MEDS: ENOXAPARIN 30 MG/0.3 ML SYG SC SCH (08:19)
[2018-11-16] MEDS: INSULIN ASPART [NOVOLOG] 3 ML PEN SC SCH ×4 (08:19→20:34)
[2018-11-16] MEDS ORDERED: METO-429 PO (10:05)
[2018-11-16] MEDS ORDERED: HYDR-3672 PO (10:05)
[2018-11-16] MEDS ORDERED: ACET325T33 PO (10:05)
[2018-11-16] MEDS ORDERED: SIMV20TA PO (10:05)
[2018-11-16] MEDS: ACETAMINOPHEN 325 MG TAB PO PRN (11:18)
--- NOTE | 2018-11-16 15:58 | PN ---
Date/Time of Note Date/Time of Note DATE: 11/16/18 TIME: 15:55 Assessment/Plan VTE Prophylaxis Risk score (from Ns)>0 risk: 2 SCD applied (from Ns): Yes Pharmacological prophylaxis: NA/contraindicated Pharm contraindication: low risk/ambulating Lines/Catheters IV Catheter Type (from Nrsg): Peripheral IV Assessment/Plan Assessment/Plan 1. Syncopal episodes- resolved - Most likely secondary to uncontrolled BP with SBP up to 240s per pt. - Carotid US negative as well as CT scan head for acute abnormalities or occlusions - Cardiology consultation placed by ED physician and awaiting recommendations. ECHO performed 05/09/18 without any structural abnormalities 2. Hypertensive emergency - Cardiology consultation appreciated given despite adjustment to BP medicat ions, still with SBP 180-190s - most likely contributing to syncopal episodes 3. CKD- stable - renal US negative for obstruction. Concerns for urinary retention but patient denies any issues - IV NS on board - will avoid nephrotoxic agents 4. Acute chest pain- resolved - trops negative - most likely demand in setting of uncontrolled BP 5. DM - A1c noted - continue home lantus dose - ISS and accuchecks 6. hyperkalemia- resolved 7. Disposition - Continue adjusting BP medications for better control prior to d/c home Result Diagram: 11/16/18 0557 11/16/18 0557 Results 24hrs Laboratory Tests Test 11/15/18 17:24 11/15/18 20:23 11/16/18 01:53 11/16/18 05:57 Bedside Glucose 161 225 H 117 White Blood Count 7.0 Red Blood Count 3.26 L Hemoglobin 9.4 L Hematocrit 28.4 L Mean Corpuscular 87.1 Volume Mean Corpuscular 28.8 L Hemoglobin Mean Corpuscular 33.1 Hemoglobin Concent Red Cell 12.7 Distribution Width Platelet Count 117 L Mean Platelet Volume 12.8 H Immature 0.100 Granulocytes % Neutrophils % 58.2 Lymphocytes % 27.9 Monocytes % 9.9 Eosinophils % 3.5 Basophils % 0.4 Nucleated Red Blood 0.0 Cells % Immature 0.010 Granulocytes # Neutrophils # 4.0 Lymphocytes # 1.9 Monocytes # 0.7 Eosinophils # 0.2 Basophils # 0.0 Nucleated Red Blood 0.0 Cells # Sodium Level 142 Potassium Level 4.4 Chloride Level 114 H Carbon Dioxide Level 20 L Anion Gap 8 Blood Urea Nitrogen 27 H Creatinine 1.58 H Glucose Level 126 Calcium Level 8.5 Phosphorus Level 4.1 Magnesium Level 1.8 Albumin 3.2 L Test 11/16/18 08:07 11/16/18 11:20 Bedside Glucose 142 133 Subjective 24 Hr Interval Summary Free Text/Dictation Patient denies any acute issues. States ambulating without any issues and no further syncopal episodes. However, SBP still 170-190s despite medication adjustments. Exam/Review of Systems Exam Vitals Vital Signs Date Temp Pulse Resp B/P (MAP) Pulse Ox O2 O2 Flow FiO2 Time Delivery Rate 11/16/18 62 15:36 11/16/18 98.3 18 166/74 100 Room Air 15:01 (104) Intake and Output 11/15/18 11/15/18 11/16/18 1515:00 23:00 07:00 IntakeIntake Total 910 ml 350 ml BalanceBalance 910 ml 350 ml Exam General: no acute distress. awake and answering questions appropriately. CVS: S1, S2, regular rate and rhythm, no murmurs Lungs: Clear to auscultation bilaterally. no wheezing or rhonchi Abd: soft, nontender, nondistended, +BS, no rebound or guarding Ext: no edema, cyanosis, or clubbing Results Results 24hrs Laboratory Tests Test 11/15/18 17:24 11/15/18 20:23 11/16/18 01:53 11/16/18 05:57 Bedside Glucose 161 225 H 117 White Blood Count 7.0 Red Blood Count 3.26 L Hemoglobin 9.4 L Hematocrit 28.4 L Mean Corpuscular 87.1 Volume Mean Corpuscular 28.8 L Hemoglobin Mean Corpuscular 33.1 Hemoglobin Concent Red Cell 12.7 Distribution Width Platelet Count 117 L Mean Platelet Volume 12.8 H Immature 0.100 Granulocytes % Neutrophils % 58.2 Lymphocytes % 27.9 Monocytes % 9.9 Eosinophils % 3.5 Basophils % 0.4 Nucleated Red Blood 0.0 Cells % Immature 0.010 Granulocytes # Neutrophils # 4.0 Lymphocytes # 1.9 Monocytes # 0.7 Eosinophils # 0.2 Basophils # 0.0 Nucleated Red Blood 0.0 Cells # Sodium Level 142 Potassium Level 4.4 Chloride Level 114 H Carbon Dioxide Level 20 L Anion Gap 8 Blood Urea Nitrogen 27 H Creatinine 1.58 H Glucose Level 126 Calcium Level 8.5 Phosphorus Level 4.1 Magnesium Level 1.8 Albumin 3.2 L Test 11/16/18 08:07 11/16/18 11:20 Bedside Glucose 142 133 Medications Medication Current Medications Metoprolol Tartrate (Lopressor) 50 mg BID PO Last administered on 11/16/18 08:08; Admin Dose 50 MG; Start 11/14/18 at 21:00 Pantoprazole (Protonix Tab) 40 mg DAILY@0600 PO Last administered on 11/16/18at 05:43; Admin Dose 40 MG; Start 11/15/18 at 06:00 Atorvastatin Calcium (Lipitor) 10 mg QHS PO Last administered on 11/15/18 20:24; Admin Dose 10 MG; Start 11/14/18 at 21:00 IV Flush (NS 3 ml) 3 ml PER PROTOCOL IV ; Start 11/14/18 at 18:30 Ondansetron HCl (Zofran Inj) 4 mg Q6H PRN IV NAUSEA/VOMITING; Start 11/14/18 at 18:30 Acetaminophen (Tylenol Tab) 650 mg Q6H PRN PO .PAIN 1-3 OR TEMP Last administered on 11/16/18 11:18; Admin Dose 650 MG; Start 11/14/18 at 18:30 Enoxaparin Sodium (Lovenox) 30 mg DAILY SC Last administered on 11/16/18 08:19; Admin Dose 30 MG; Start 11/15/18 at 09:00 Hydralazine HCl (Apresoline) 10 mg Q4H PRN IV SBP >170 Last administered on 11/15/18at 14:48; Admin Dose 10 MG; Start 11/14/18 at 18:30 Insulin Glargine (Lantus) 10 units AM SC Last administered on 11/16/18 08:19; Admin Dose 10 UNITS; Start 11/15/18 at 09:00 Insulin Aspart (Novolog Insulin Pen) NOVOLOG *MILD* ALGORITHM WITH MEALS BEDTIME SC Last administered on 11/16/18 08:19; Admin Dose 1 UNIT; Start 11/14/18 at 21:00 Miscellaneous Information 1 ea NOTE XX ; Start 11/14/18 at 19:30 Glucose (Glutose) 15 gm Q15M PRN PO DECREASED GLUCOSE; Start 11/14/18 at 19:30 Glucose (Glutose) 22.5 gm Q15M PRN PO DECREASED GLUCOSE; Start 11/14/18 at 19:30 Dextrose (D50w Syringe) 25 ml Q15M PRN IV DECREASED GLUCOSE; Start 11/14/18 at 19:30 Dextrose (D50w Syringe) 50 ml Q15M PRN IV DECREASED GLUCOSE; Start 11/14/18 at 19:30 Glucagon (Glucagen) 1 mg Q15M PRN IM DECREASED GLUCOSE; Start 11/14/18 at 19:30 Glucose (Glutose) 15 gm Q15M PRN BUCCAL DECREASED GLUCOSE; Start 11/14/18 at 19:30 Hydralazine HCl (Apresoline) 50 mg Q8 PO Last administered on 11/16/18at 13:58; Admin Dose 50 MG; Start 11/16/18 at 14:00 Clonidine (Catapres) 0.1 mg Q6H PRN PO SBP >170; Start 11/16/18 at 14:00 WALLACE DAMON MD Nov 16, 2018 15:58
[2018-11-16] MEDS ORDERED: NIFEdipine (XL) 30 MG TAB PO ONE (17:00)
--- NOTE | 2018-11-16 17:51 | CONS ---
DATE OF ADMISSION: 11/14/2018 DATE OF CONSULTATION: 11/16/2018 TYPE OF CONSULTATION: Cardiology. REASON FOR CONSULTATION: Hypertensive urgency/emergency, syncope, rule out cardiac etiology. REQUESTING PHYSICIAN: Jaylyn Duenas MD, from the hospitalist service. HISTORY OF PRESENT ILLNESS: Mr. 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 He states this happened x3 and paramedics were called. The patient was brought to the emergency department whereupon arrival, temperature was 97.8, blood pressure was markedly elevated at 179/91, pulse 80, respiratory rate 18, satting 99%. The patient's labs showed white blood cell count of 8.8, hemoglobin 11.3, platelet count of 130, sodium 140, potassium 6.3, creatinine 0.65, BUN 31. Troponin negative. The patient underwent a carotid Doppler revealing unremarkable carotid arteries, a head CT revealing negative noncontrast CT of the brain, a chest x-ray that revealed mild vascular congestion and a renal ultrasound that revealed distended bladder with volume consistent with urine retention. The patient's electrocardiogram revealed a sinus rhythm, rate 83, normal axis, normal intervals with frequent PACs. The patient subsequently has been admitted to the floor and since admit to floor was monitored on telemetry revealing sinus rhythm, sinus jose in the 50s. The patient continues to have uncontrolled systolic blood pressure most recently 160s to 170s. The patient at this time has been placed on hydralazine in incremental increasing doses and maintained on metoprolol. PAST MEDICAL HISTORY: As above in HPI. MEDICATIONS CURRENTLY IN HOSPITAL: 1. Hydralazine 50 mg p.o. q.8. 2. Lovenox 40 mg subcutaneously daily. 3. Insulin. 4. Protonix. 5. Metoprolol 50 mg p.o. b.i.d. 6. Lipitor 10 mg at bedtime. 7. Hydralazine p.r.n. IV push. ALLERGIES: NO KNOWN DRUG ALLERGIES. SOCIAL HISTORY: No current tobacco, EtOH or illicit drug use. FAMILY HISTORY: Negative for sudden cardiac or early CAD. REVIEW OF SYSTEMS: As above in HPI. CONSTITUTIONAL: No fevers, chills. PULMONARY: No current shortness of breath. CARDIOVASCULAR: No current chest pain. GASTROINTESTINAL: No vomiting. GENITOURINARY: No hematuria. MUSCULOSKELETAL: Degenerative joint disease. PSYCHIATRIC: The patient denies depression. NEUROLOGIC: No documented history of CVA. ENDOCRINE: Diabetes mellitus. PHYSICAL EXAMINATION: VITAL SIGNS: Temperature of 98.3, blood pressure 160/74, pulse 59, respiratory rate 18, satting 100%. GENERAL: The patient is alert, awake, in no acute distress. NECK: JVP is approximately 9 cm of water. CHEST: Fair air movement throughout. HEART: Regular rate and rhythm. Normal S1, S2, I/ systolic murmur. Nondisplaced PMI. ABDOMEN: Positive bowel sounds, soft. EXTREMITIES: Trace edema, 1+ pulses bilateral posterior tibial. LABORATORY DATA: Most recently from today, white blood cell count 7.9, hemoglobin 9.4, platelet count of 117. Sodium 142, potassium 4.4, creatinine 0.58, BUN 27. IMAGING STUDIES: As above in HPI. No further imaging studies for my review at this time. ELECTROCARDIOGRAM: As above in HPI. No further electrocardiogram for my review at this time. IMPRESSION: 1. Hypertensive urgency/emergency. 2. Syncope, rule out cardiac etiology for cardiac arrhythmia, question if due to arrhythmia in the setting of hyperkalemia, vasovagal syncope from pain from urinary retention. 3. Abnormal electrocardiogram, nonspecific ST-T wave abnormalities, assess for acute coronary syndrome. 4. Diabetes mellitus. 5. Dyslipidemia. 6. Renal failure, chronic kidney disease. RECOMMENDATIONS: 1. At this time, we would maintain the patient on telemetry monitoring to follow rhythm and rate closely. 2. The patient is status post 2D echo in 04/2018 revealing a preserved EF of 60% to 65%. 3. The patient since admit has had negative troponins x3, ruling out acute myocardial infarction. 4. We will follow the patient's potassium closely. 5. Continue the patient's current beta edwin and hydralazine with up titration with probable need for additional antihypertensives and therefore consider initiation of calcium channel edwin. 6. Follow the patient's blood sugars closely. 7. Check fasting lipid panel for general risk stratification and adjust patient's lipid lowering medication as necessary. 8. Follow the patient's hemoglobin closely and follow for ongoing urinary retention as possible etiology of the patient's renal failure. Thank you for allowing me to take part in the care of this patient. I will continue to follow him very closely with you with further recommendations to be made as the patient progresses through his inpatient hospital clinical course. Dictated By: MARCK QUIÑONEZ/CHACHA Conf#: [id number] DID#: [id number] CC: JAYLYN DUENAS MD;*EndCC* MTDD
[2018-11-16] MEDS: ATORVASTATIN 10 MG TAB PO SCH (20:27)
[2018-11-17] VITALS (12 sets, daily range): BP systolic 108–158; BP diastolic 56–69; PULSE 53–64; RESP 16–20
[2018-11-17] MEDS: PANTOPRAZOLE (EC) 40 MG TAB PO SCH (06:23)
[2018-11-17] MEDS: INSULIN ASPART [NOVOLOG] 3 ML PEN SC SCH ×4 (07:55→21:00)
[2018-11-17] MEDS: METOPROLOL 50 MG TAB PO SCH (08:50)
[2018-11-17] MEDS: ENOXAPARIN 30 MG/0.3 ML SYG SC SCH (08:51)
[2018-11-17] MEDS: INSULIN GLARGINE [LANTus] (100 UNITS/ML) SYG SC SCH (08:52)
[2018-11-17] MEDS: ACETAMINOPHEN 325 MG TAB PO PRN (09:00)
[2018-11-17] MEDS ORDERED: NIFEdipine (XL) 30 MG TAB PO SCH ×3 (09:00→21:00)
[2018-11-17] MEDS: METOPROLOL 25 MG TAB PO SCH ×2 (10:56→20:56)
--- NOTE | 2018-11-17 15:19 | CONS ---
Assessment/Plan Assessment/Plan Hospital Course (Demo Recall) IMPRESSION: 1. Hypertensive urgency/emergency.-now improved 2. Syncope, rule out cardiac etiology for cardiac arrhythmia, question if due to arrhythmia in the setting of hyperkalemia, vasovagal syncope from pain from urinary retention. 3. Abnormal electrocardiogram, nonspecific ST-T wave abnormalities, assess for acute coronary syndrome.-neg trop x 3 4. Diabetes mellitus. 5. Dyslipidemia. 6. Renal failure, chronic kidney disease. Recc: -Tele -serial ecg's -Continue hydralazione/BB/procardia with now improved SBP and actual holding of some antihypertensives. Will follow -continue statin Consultation Date/Type/Reason Admit Date/Time Nov 14, 2018 at 18:04 Initial Consult Date 11/16/18 Type of Consult Cardiology Reason for Consultation cardiology Date/Time of Note DATE: 11/17/18 TIME: 15:13 Exam/Review of Systems Vital Signs Vitals Vital Signs Date Temp Pulse Resp B/P (MAP) Pulse Ox O2 O2 Flow FiO2 Time Delivery Rate 11/17/18 53 12:01 11/17/18 98.7 18 117/61 100 Room Air 11:18 (79) Intake and Output 11/16/18 11/16/18 11/17/18 1515:00 23:00 07:00 IntakeIntake Total 800 ml 1250 ml 300 ml BalanceBalance 800 ml 1250 ml 300 ml Exam Exam Review of Systems: CONSTITUTIONAL: No fevers, chills. PULMONARY: No sob CARDIOVASCULAR: No chest pain/palpitations GASTROINTESTINAL: No nausea/vomiting. GENITOURINARY: No hematuria/dysuria. MUSCULOSKELETAL: No myagias/arthalgias. PSYCHIATRIC: The patient denies depression. NEUROLOGIC: No weakness Constitutional: alert, oriented Psych: no complaints Head: normocephalic ENMT: mucosa pink and moist Neck: supple, jvd (9 cm water) Respiratory: clear to auscultation Cardiovascular: regular rate and rhythm Gastrointestinal: soft, non-tender Musculoskeletal: muscle tone (normal) Extremities: edema (none) Neurological: other (No focal deficits) Labs Result Diagram: 11/17/18 0626 11/17/18 0626 Results 24hrs Laboratory Tests Test 11/16/18 18:00 11/16/18 20:29 11/17/18 06:26 11/17/18 08:13 Bedside Glucose 140 224 H 128 White Blood Count 6.4 Red Blood Count 3.16 L Hemoglobin 9.4 L Hematocrit 27.4 L Mean Corpuscular 86.7 Volume Mean Corpuscular 29.7 Hemoglobin Mean Corpuscular 34.3 Hemoglobin Concent Red Cell 12.7 Distribution Width Platelet Count 116 L Mean Platelet Volume 12.6 H Immature 0.500 H Granulocytes % Neutrophils % 62.1 Lymphocytes % 23.3 Monocytes % 8.9 Eosinophils % 4.7 Basophils % 0.5 Nucleated Red Blood 0.0 Cells % Immature 0.030 Granulocytes # Neutrophils # 4.0 Lymphocytes # 1.5 Monocytes # 0.6 Eosinophils # 0.3 Basophils # 0.0 Nucleated Red Blood 0.0 Cells # Sodium Level 141 Potassium Level 4.7 Chloride Level 108 Carbon Dioxide Level 23 Anion Gap 10 Blood Urea Nitrogen 29 H Creatinine 1.58 H Glucose Level 127 Calcium Level 9.0 Phosphorus Level 4.2 Magnesium Level 1.8 Albumin 3.4 Test 11/17/18 12:05 Bedside Glucose 144 Medications Medications Current Medications Pantoprazole (Protonix Tab) 40 mg DAILY@0600 PO Last administered on 11/17/18at 06:23; Admin Dose 40 MG; Start 11/15/18 at 06:00 Atorvastatin Calcium (Lipitor) 10 mg QHS PO Last administered on 11/16/18at 20:27; Admin Dose 10 MG; Start 11/14/18 at 21:00 IV Flush (NS 3 ml) 3 ml PER PROTOCOL IV ; Start 11/14/18 at 18:30 Ondansetron HCl (Zofran Inj) 4 mg Q6H PRN IV NAUSEA/VOMITING; Start 11/14/18 at 18:30 Acetaminophen (Tylenol Tab) 650 mg Q6H PRN PO .PAIN 1-3 OR TEMP Last administered on 11/17/18 09:00; Admin Dose 650 MG; Start 11/14/18 at 18:30 Enoxaparin Sodium (Lovenox) 30 mg DAILY SC Last administered on 11/17/18at 08:51; Admin Dose 30 MG; Start 11/15/18 at 09:00 Hydralazine HCl (Apresoline) 10 mg Q4H PRN IV SBP >170 Last administered on 11/15/18at 14:48; Admin Dose 10 MG; Start 11/14/18 at 18:30 Insulin Glargine (Lantus) 10 units AM SC Last administered on 11/17/18at 08:52; Admin Dose 10 UNITS; Start 11/15/18 at 09:00 Insulin Aspart (Novolog Insulin Pen) NOVOLOG *MILD* ALGORITHM WITH MEALS BEDTIME SC Last administered on 11/17/18at 12:06; Admin Dose 1 UNIT; Start 11/14/18 at 21:00 Miscellaneous Information 1 ea NOTE XX ; Start 11/14/18 at 19:30 Glucose (Glutose) 15 gm Q15M PRN PO DECREASED GLUCOSE; Start 11/14/18 at 19:30 Glucose (Glutose) 22.5 gm Q15M PRN PO DECREASED GLUCOSE; Start 11/14/18 at 19:30 Dextrose (D50w Syringe) 25 ml Q15M PRN IV DECREASED GLUCOSE; Start 11/14/18 at 19:30 Dextrose (D50w Syringe) 50 ml Q15M PRN IV DECREASED GLUCOSE; Start 11/14/18 at 19:30 Glucagon (Glucagen) 1 mg Q15M PRN IM DECREASED GLUCOSE; Start 11/14/18 at 19:30 Glucose (Glutose) 15 gm Q15M PRN BUCCAL DECREASED GLUCOSE; Start 11/14/18 at 19:30 Hydralazine HCl (Apresoline) 50 mg Q8 PO Last administered on 11/17/18at 13:45; Admin Dose 50 MG; Start 11/16/18 at 14:00 Clonidine (Catapres) 0.1 mg Q6H PRN PO SBP >170 Last administered on 11/16/18at 21:54; Admin Dose 0.1 MG; Start 11/16/18 at 14:00 Nifedipine (Procardia Xl) 30 mg DAILY PO ; Start 11/17/18 at 09:00 Metoprolol Tartrate (Lopressor) 25 mg BID PO ; Start 11/17/18 at 09:00 MARCK VERDUZCO Nov 17, 2018 15:18
--- NOTE | 2018-11-17 18:09 | PN ---
Date/Time of Note Date/Time of Note DATE: 11/17/18 TIME: 18:05 Assessment/Plan VTE Prophylaxis Risk score (from Nsg)>0 risk: 1 SCD applied (from Nsg): Yes Pharmacological prophylaxis: NA/contraindicated Pharm contraindication: low risk/ambulating Lines/Catheters IV Catheter Type (from Nrsg): Saline Lock Urinary Cath still in place: No Assessment/Plan Assessment/Plan 1. Syncopal episodes- resolved - Most likely secondary to uncontrolled BP with SBP up to 240s per pt. Patient did have a recorded SBP 200 last night - Carotid US negative as well as CT scan head for acute abnormalities or occlusions 2. Hypertensive emergency - Cardiology consultation appreciated and adjustments made to medication regime - given bradycardia, will decrease dose of metoprolol. Continue hydralazine and nifedipine - most likely contributing to syncopal episodes 3. CKD- stable - renal US negative for obstruction. Concerns for urinary retention but patient denies any issues - IV NS on board - Follow up as outpatient - will avoid nephrotoxic agents 4. Acute chest pain- resolved - trops negative - most likely demand in setting of uncontrolled BP 5. DM - A1c noted - continue home lantus dose - ISS and accuchecks 6. hyperkalemia- resolved 7. Disposition - If BP remains stable tomorrow, will d/c home. Adjustments made to medications throughout the day and will need to monitor for tolerance and stabilization prior to discharge given Bp was most likely contributing factor for syncopal episodes Result Diagram: 11/17/18 0626 11/17/18 0626 Results 24hrs Laboratory Tests Test 11/16/18 20:29 11/17/18 06:26 11/17/18 08:13 11/17/18 12:05 Bedside Glucose 224 H 128 144 White Blood Count 6.4 Red Blood Count 3.16 L Hemoglobin 9.4 L Hematocrit 27.4 L Mean Corpuscular 86.7 Volume Mean Corpuscular 29.7 Hemoglobin Mean Corpuscular 34.3 Hemoglobin Concent Red Cell 12.7 Distribution Width Platelet Count 116 L Mean Platelet Volume 12.6 H Immature 0.500 H Granulocytes % Neutrophils % 62.1 Lymphocytes % 23.3 Monocytes % 8.9 Eosinophils % 4.7 Basophils % 0.5 Nucleated Red Blood 0.0 Cells % Immature 0.030 Granulocytes # Neutrophils # 4.0 Lymphocytes # 1.5 Monocytes # 0.6 Eosinophils # 0.3 Basophils # 0.0 Nucleated Red Blood 0.0 Cells # Sodium Level 141 Potassium Level 4.7 Chloride Level 108 Carbon Dioxide Level 23 Anion Gap 10 Blood Urea Nitrogen 29 H Creatinine 1.58 H Glucose Level 127 Calcium Level 9.0 Phosphorus Level 4.2 Magnesium Level 1.8 Albumin 3.4 Test 11/17/18 17:31 Bedside Glucose 172 Subjective 24 Hr Interval Summary Free Text/Dictation Patient states he's feeling better but discussed SBP last night of 200s. HR now bradycardic but denies any dizziness. Exam/Review of Systems Exam Vitals Vital Signs Date Temp Pulse Resp B/P (MAP) Pulse Ox O2 O2 Flow FiO2 Time Delivery Rate 11/17/18 56 16:01 11/17/18 97.5 18 139/69 100 Room Air 15:38 (92) Intake and Output 11/16/18 11/16/18 11/17/18 1515:00 23:00 07:00 IntakeIntake Total 800 ml 1250 ml 300 ml BalanceBalance 800 ml 1250 ml 300 ml Exam General: no acute distress. awake and answering questions appropriately. CVS: S1, S2, regular rhythm, bradycardia, no murmurs Lungs: Clear to auscultation bilaterally. no wheezing or rhonchi Abd: soft, nontender, nondistended, +BS, no rebound or guarding Ext: no edema, cyanosis, or clubbing Results Results 24hrs Laboratory Tests Test 11/16/18 20:29 11/17/18 06:26 11/17/18 08:13 11/17/18 12:05 Bedside Glucose 224 H 128 144 White Blood Count 6.4 Red Blood Count 3.16 L Hemoglobin 9.4 L Hematocrit 27.4 L Mean Corpuscular 86.7 Volume Mean Corpuscular 29.7 Hemoglobin Mean Corpuscular 34.3 Hemoglobin Concent Red Cell 12.7 Distribution Width Platelet Count 116 L Mean Platelet Volume 12.6 H Immature 0.500 H Granulocytes % Neutrophils % 62.1 Lymphocytes % 23.3 Monocytes % 8.9 Eosinophils % 4.7 Basophils % 0.5 Nucleated Red Blood 0.0 Cells % Immature 0.030 Granulocytes # Neutrophils # 4.0 Lymphocytes # 1.5 Monocytes # 0.6 Eosinophils # 0.3 Basophils # 0.0 Nucleated Red Blood 0.0 Cells # Sodium Level 141 Potassium Level 4.7 Chloride Level 108 Carbon Dioxide Level 23 Anion Gap 10 Blood Urea Nitrogen 29 H Creatinine 1.58 H Glucose Level 127 Calcium Level 9.0 Phosphorus Level 4.2 Magnesium Level 1.8 Albumin 3.4 Test 11/17/18 17:31 Bedside Glucose 172 Medications Medication Current Medications Pantoprazole (Protonix Tab) 40 mg DAILY@0600 PO Last administered on 11/17/18 06:23; Admin Dose 40 MG; Start 11/15/18 at 06:00 Atorvastatin Calcium (Lipitor) 10 mg QHS PO Last administered on 11/16/18 20:27; Admin Dose 10 MG; Start 11/14/18 at 21:00 IV Flush (NS 3 ml) 3 ml PER PROTOCOL IV ; Start 11/14/18 at 18:30 Ondansetron HCl (Zofran Inj) 4 mg Q6H PRN IV NAUSEA/VOMITING; Start 11/14/18 at 18:30 Acetaminophen (Tylenol Tab) 650 mg Q6H PRN PO .PAIN 1-3 OR TEMP Last administered on 11/17/18 09:00; Admin Dose 650 MG; Start 11/14/18 at 18:30 Enoxaparin Sodium (Lovenox) 30 mg DAILY SC Last administered on 11/17/18 08:51 ; Admin Dose 30 MG; Start 11/15/18 at 09:00 Hydralazine HCl (Apresoline) 10 mg Q4H PRN IV SBP >170 Last administered on 11/15/18at 14:48; Admin Dose 10 MG; Start 11/14/18 at 18:30 Insulin Glargine (Lantus) 10 units AM SC Last administered on 11/17/18 08:52; Admin Dose 10 UNITS; Start 11/15/18 at 09:00 Insulin Aspart (Novolog Insulin Pen) NOVOLOG *MILD* ALGORITHM WITH MEALS BEDTIME SC Last administered on 11/17/18 17:35; Admin Dose 1 UNIT; Start 11/14/18 at 21:00 Miscellaneous Information 1 ea NOTE XX ; Start 11/14/18 at 19:30 Glucose (Glutose) 15 gm Q15M PRN PO DECREASED GLUCOSE; Start 11/14/18 at 19:30 Glucose (Glutose) 22.5 gm Q15M PRN PO DECREASED GLUCOSE; Start 11/14/18 at 19:30 Dextrose (D50w Syringe) 25 ml Q15M PRN IV DECREASED GLUCOSE; Start 11/14/18 at 19:30 Dextrose (D50w Syringe) 50 ml Q15M PRN IV DECREASED GLUCOSE; Start 11/14/18 at 19:30 Glucagon (Glucagen) 1 mg Q15M PRN IM DECREASED GLUCOSE; Start 11/14/18 at 19:30 Glucose (Glutose) 15 gm Q15M PRN BUCCAL DECREASED GLUCOSE; Start 11/14/18 at 19:30 Hydralazine HCl (Apresoline) 50 mg Q8 PO Last administered on 11/17/18at 13:45; Admin Dose 50 MG; Start 11/16/18 at 14:00 Clonidine (Catapres) 0.1 mg Q6H PRN PO SBP >170 Last administered on 11/16/18at 21:54; Admin Dose 0.1 MG; Start 11/16/18 at 14:00 Metoprolol Tartrate (Lopressor) 25 mg BID PO ; Start 11/17/18 at 09:00 Nifedipine (Procardia Xl) 30 mg DAILY PO ; Start 11/17/18 at 21:00 WALLACE DAMON MD Nov 17, 2018 18:09
[2018-11-17] MEDS: ATORVASTATIN 10 MG TAB PO SCH (20:56)
[2018-11-18 01:00] VITALS: BP 162/72; PULSE 61; RESP 18
[2018-11-18] MEDS: ACETAMINOPHEN 325 MG TAB PO PRN (01:36)
[2018-11-18] MEDS: PANTOPRAZOLE (EC) 40 MG TAB PO SCH (05:39)
[2018-11-18] MEDS: INSULIN ASPART [NOVOLOG] 3 ML PEN SC SCH ×2 (08:00→12:00)
[2018-11-18 08:09] VITALS: BP 129/62; PULSE 61; RESP 18
[2018-11-18] MEDS: METOPROLOL 25 MG TAB PO SCH (08:26)
[2018-11-18] MEDS: ENOXAPARIN 30 MG/0.3 ML SYG SC SCH (08:28)
--- NOTE | 2018-11-18 08:54 | PN ---
Date/Time of Note Date/Time of Note DATE: 11/18/18 TIME: 08:54 Assessment/Plan VTE Prophylaxis Risk score (from Nsg)>0 risk: 1 SCD applied (from Nsg): Yes Pharmacological prophylaxis: LMWH Lines/Catheters IV Catheter Type (from Nrsg): Saline Lock Urinary Cath still in place: No Assessment/Plan Assessment/Plan 1. Hypertensive emergency- improved - Cardiology consultation appreciated and adjustments made to medication regime. BP better controlled and discussed dietary modifications to improve BP as well - most likely contributing to syncopal episodes 2. Syncopal episodes- resolved - Most likely secondary to uncontrolled BP with SBP up to 240s per pt. - Carotid US negative as well as CT scan head for acute abnormalities or occlusions 3. CKD- stable - renal US negative for obstruction. Concerns for urinary retention but patient denies any issues - Follow up as outpatient - will avoid nephrotoxic agents 4. Acute chest pain- resolved - trops negative - most likely demand in setting of uncontrolled BP 5. DM - A1c noted - continue home lantus dose - ISS and accuchecks 6. hyperkalemia- resolved 7. Disposition - Medically stable for discharge home Result Diagram: 11/17/18 0626 11/18/18 0441 Results 24hrs Laboratory Tests Test 11/17/18 12:05 11/17/18 17:31 11/17/18 20:59 11/18/18 04:41 Bedside Glucose 144 172 132 Sodium Level 139 Potassium Level 4.7 Chloride Level 110 Carbon Dioxide Level 21 Anion Gap 8 Blood Urea Nitrogen 31 H Creatinine 1.60 H Glucose Level 105 Calcium Level 9.6 Phosphorus Level 4.6 Magnesium Level 1.8 Albumin 3.5 Test 11/18/18 07:52 Bedside Glucose 124 Subjective 24 Hr Interval Summary Free Text/Dictation Patients doing well and in no acute distress. Denies any further episodes of dizziness or syncopal episodes. Exam/Review of Systems Exam Vitals Vital Signs Date Temp Pulse Resp B/P (MAP) Pulse Ox O2 O2 Flow FiO2 Time Delivery Rate 11/18/18 98.7 61 18 129/62 99 08:09 (84) 11/18/18 Room Air 01:00 Intake and Output 11/17/18 11/17/18 11/18/18 1515:00 23:00 07:00 IntakeIntake Total 1260 ml 500 ml BalanceBalance 1260 ml 500 ml Exam General: no acute distress. awake and answering questions appropriately. CVS: S1, S2, regular rhythm, bradycardia, no murmurs Lungs: Clear to auscultation bilaterally. no wheezing or rhonchi Abd: soft, nontender, nondistended, +BS, no rebound or guarding Ext: no edema, cyanosis, or clubbing Results Results 24hrs Laboratory Tests Test 11/17/18 12:05 11/17/18 17:31 11/17/18 20:59 11/18/18 04:41 Bedside Glucose 144 172 132 Sodium Level 139 Potassium Level 4.7 Chloride Level 110 Carbon Dioxide Level 21 Anion Gap 8 Blood Urea Nitrogen 31 H Creatinine 1.60 H Glucose Level 105 Calcium Level 9.6 Phosphorus Level 4.6 Magnesium Level 1.8 Albumin 3.5 Test 11/18/18 07:52 Bedside Glucose 124 Medications Medication Current Medications Pantoprazole (Protonix Tab) 40 mg DAILY@0600 PO Last administered on 11/18/18 05:39; Admin Dose 40 MG; Start 11/15/18 at 06:00 Atorvastatin Calcium (Lipitor) 10 mg QHS PO Last administered on 11/17/18at 20:56; Admin Dose 10 MG; Start 11/14/18 at 21:00 IV Flush (NS 3 ml) 3 ml PER PROTOCOL IV ; Start 11/14/18 at 18:30 Ondansetron HCl (Zofran Inj) 4 mg Q6H PRN IV NAUSEA/VOMITING; Start 11/14/18 at 18:30 Acetaminophen (Tylenol Tab) 650 mg Q6H PRN PO .PAIN 1-3 OR TEMP Last administered on 11/18/18at 01:36; Admin Dose 650 MG; Start 11/14/18 at 18:30 Enoxaparin Sodium (Lovenox) 30 mg DAILY SC Last administered on 11/18/18 08:28; Admin Dose 30 MG; Start 11/15/18 at 09:00 Hydralazine HCl (Apresoline) 10 mg Q4H PRN IV SBP >170 Last administered on 11/15/18at 14:48; Admin Dose 10 MG; Start 11/14/18 at 18:30 Insulin Glargine (Lantus) 10 units AM SC Last administered on 11/17/18 08:52; Admin Dose 10 UNITS; Start 11/15/18 at 09:00 Insulin Aspart (Novolog Insulin Pen) NOVOLOG *MILD* ALGORITHM WITH MEALS BEDTIME SC Last administered on 11/17/18at 17:35; Admin Dose 1 UNIT; Start 11/14/18 at 21:00 Miscellaneous Information 1 ea NOTE XX ; Start 11/14/18 at 19:30 Glucose (Glutose) 15 gm Q15M PRN PO DECREASED GLUCOSE; Start 11/14/18 at 19:30 Glucose (Glutose) 22.5 gm Q15M PRN PO DECREASED GLUCOSE; Start 11/14/18 at 19:30 Dextrose (D50w Syringe) 25 ml Q15M PRN IV DECREASED GLUCOSE; Start 11/14/18 at 19:30 Dextrose (D50w Syringe) 50 ml Q15M PRN IV DECREASED GLUCOSE; Start 11/14/18 at 19:30 Glucagon (Glucagen) 1 mg Q15M PRN IM DECREASED GLUCOSE; Start 11/14/18 at 19:30 Glucose (Glutose) 15 gm Q15M PRN BUCCAL DECREASED GLUCOSE; Start 11/14/18 at 19:30 Hydralazine HCl (Apresoline) 50 mg Q8 PO Last administered on 11/18/18at 05:40; Admin Dose 50 MG; Start 11/16/18 at 14:00 Clonidine (Catapres) 0.1 mg Q6H PRN PO SBP >170 Last administered on 11/16/18at 21:54; Admin Dose 0.1 MG; Start 11/16/18 at 14:00 Metoprolol Tartrate (Lopressor) 25 mg BID PO Last administered on 11/18/18at 08:26; Admin Dose 25 MG; Start 11/17/18 at 09:00 Nifedipine (Procardia Xl) 30 mg QHS PO Last administered on 11/17/18at 20:56; Admin Dose 30 MG; Start 11/17/18 at 21:00 Miscellaneous Information Patients own medicat... BID@10 XX ; Start 11/18/18 at 10:00 WALLACE DAMON MD Nov 18, 2018 08:54
[2018-11-18] MEDS: INSULIN GLARGINE [LANTus] (100 UNITS/ML) SYG SC SCH ×2 (09:00→11:34)
[2018-11-18] MEDS ORDERED: METO-448 PO (13:04)
[2018-11-18] MEDS ORDERED: NIFE30TA2 PO (13:04)
--- NOTE | 2018-11-18 13:10 | PDOCDIS ---
Discharge Instructions DIAGNOSIS Discharge Diagnosis 1. Hypertensive emergency- resolved 2. Syncopal episodes- resolved 3. CKD- stable 4. Acute chest pain- resolved 5. DM 6. hyperkalemia- resolved CONDITION [id number] Patient Condition: [id number] Stable HOME CARE INSTRUCTIONS: [id number] Diet Instructions: [id number] Reduced Sodium [id number] Special Diet: [id number] ITY: [id number] Activity Restrictions: [id number] No Restrictions FOLLOW UP/APPOINTMENTS Follow-up Plan 1. Follow up with your primary care physician in 1-2 weeks 2. Continue on Metoprolol twice a day but your dose was decreased to 25 mg since your HR was running lower than 60 in the hospital 3. Take Nifedipine 30mg prior to going to bed daily 4. Take Hydralazine 50 mg three times a day (can take with meals) 5. Monitor your blood pressure and if persists above 160, please call your primary care physician or go to your closest emergency department 6. It is important to follow a healthy diet and limit the amount of sodium you eat to 2 grams maximum. Be careful about eating canned foods since there is alot of sodium. Limit intake of processed foods since they are high in carbohydrates and fats 7. If experiencing any concerning symptoms, please go to your closest emergency department 8. Continue all other medications as prescribed 9. Make sure your PCP follows your renal function which remained stable while in the hospital 1. seguimiento con ewing mdico de atencin primaria en 1-2 semanas 2. Contine en metoprolol dos veces al da, rafiq ewing dosis se redujo a 25 mg ya que ewing HR estaba corriendo ms bajo que 60 en el hospital 3. [place] nifedipine 30mg antes de ir a la cama diariamente 4. [place] Hydralazine 50 mg bertin veces al da (puede ann con las comidas) 5. Controle ewing presin arterial y si persiste por encima de 160, por favor llame a ewing mdico de atencin primaria o vaya a ewing Departamento de emergencias ms cercano 6. es importante seguir khushbu dieta saludable y limitar la cantidad de sodio que comes a 2 gramos mximo. Tenga cuidado al comer alimentos enlatados, ya que hay mucho sodio. Limite la ingesta de alimentos procesados, ya que son ricos en carbohidratos y grasas 7. Si experimenta algn sntoma relacionado, por favor vaya a ewing Departamento de emergencias ms cercano 8. Contine con todos los dems medicamentos segn lo prescrito 9. Asegrese de que ewing PCP siga ewing funcin renal que permaneci estable mientras estaba en el hospital WALLACE DAMON MD Nov 18, 2018 13:10
--- NOTE | 2018-11-18 13:26 | CONS ---
Assessment/Plan Assessment/Plan Hospital Course (Demo Recall) IMPRESSION: 1. Hypertensive urgency/emergency.-now improved 2. Syncope, rule out cardiac etiology for cardiac arrhythmia, question if due to arrhythmia in the setting of hyperkalemia, vasovagal syncope from pain from urinary retention. 3. Abnormal electrocardiogram, nonspecific ST-T wave abnormalities, assess for acute coronary syndrome.-neg trop x 3 4. Diabetes mellitus. 5. Dyslipidemia. 6. Renal failure, chronic kidney disease. Recc: -Now on med-surg -serial ecg's -Continue hydralazine/BB/procardia with now overall improved SBP -continue statin -OK for d/c planning from cardiac standpoint Consultation Date/Type/Reason Admit Date/Time Nov 14, 2018 at 18:04 Initial Consult Date 11/16/18 Type of Consult Cardiology Reason for Consultation HTN Requesting Provider: WALLACE DAMON MD Date/Time of Note DATE: 11/18/18 TIME: 13:25 Exam/Review of Systems Vital Signs Vitals Vital Signs Date Temp Pulse Resp B/P (MAP) Pulse Ox O2 O2 Flow FiO2 Time Delivery Rate 11/18/18 98.7 61 18 129/62 99 08:09 (84) 11/18/18 Room Air 01:00 Intake and Output 11/17/18 11/17/18 11/18/18 1414:59 22:59 06:59 IntakeIntake Total 1260 ml 500 ml BalanceBalance 1260 ml 500 ml Exam Exam Review of Systems: CONSTITUTIONAL: No fevers, chills. PULMONARY: No sob CARDIOVASCULAR: No chest pain/palpitations GASTROINTESTINAL: No nausea/vomiting. GENITOURINARY: No hematuria/dysuria. MUSCULOSKELETAL: No myagias/arthalgias. PSYCHIATRIC: The patient denies depression. NEUROLOGIC: No weakness Constitutional: alert, oriented Psych: no complaints Head: normocephalic ENMT: mucosa pink and moist Neck: supple, jvd (8 cm wter) Respiratory: clear to auscultation Cardiovascular: regular rate and rhythm Gastrointestinal: soft Musculoskeletal: muscle tone (normal) Extremities: edema (none) Neurological: other (No focal deficicts) Labs Result Diagram: 11/17/18 0626 11/18/18 0441 Results 24hrs Laboratory Tests Test 11/17/18 17:31 11/17/18 20:59 11/18/18 04:41 11/18/18 07:52 Bedside Glucose 172 132 124 Sodium Level 139 Potassium Level 4.7 Chloride Level 110 Carbon Dioxide Level 21 Anion Gap 8 Blood Urea Nitrogen 31 H Creatinine 1.60 H Glucose Level 105 Calcium Level 9.6 Phosphorus Level 4.6 Magnesium Level 1.8 Albumin 3.5 Test 11/18/18 13:13 Bedside Glucose 124 Medications Medications Current Medications Pantoprazole (Protonix Tab) 40 mg DAILY@0600 PO Last administered on 11/18/18 05:39; Admin Dose 40 MG; Start 11/15/18 at 06:00 Atorvastatin Calcium (Lipitor) 10 mg QHS PO Last administered on 11/17/18 20:56; Admin Dose 10 MG; Start 11/14/18 at 21:00 IV Flush (NS 3 ml) 3 ml PER PROTOCOL IV ; Start 11/14/18 at 18:30 Ondansetron HCl (Zofran Inj) 4 mg Q6H PRN IV NAUSEA/VOMITING; Start 11/14/18 at 18:30 Acetaminophen (Tylenol Tab) 650 mg Q6H PRN PO .PAIN 1-3 OR TEMP Last administered on 11/18/18 01:36; Admin Dose 650 MG; Start 11/14/18 at 18:30 Enoxaparin Sodium (Lovenox) 30 mg DAILY SC Last administered on 11/18/18 08:28; Admin Dose 30 MG; Start 11/15/18 at 09:00 Hydralazine HCl (Apresoline) 10 mg Q4H PRN IV SBP >170 Last administered on 11/15/18 14:48; Admin Dose 10 MG; Start 11/14/18 at 18:30 Insulin Glargine (Lantus) 10 units AM SC Last administered on 11/18/18 11:34; Admin Dose 10 UNITS; Start 11/15/18 at 09:00 Insulin Aspart (Novolog Insulin Pen) NOVOLOG *MILD* ALGORITHM WITH MEALS BEDTIME SC Last administered on 11/17/18 17:35; Admin Dose 1 UNIT; Start 11/14/18 at 21:00 Miscellaneous Information 1 ea NOTE XX ; Start 11/14/18 at 19:30 Glucose (Glutose) 15 gm Q15M PRN PO DECREASED GLUCOSE; Start 11/14/18 at 19:30 Glucose (Glutose) 22.5 gm Q15M PRN PO DECREASED GLUCOSE; Start 11/14/18 at 19:30 Dextrose (D50w Syringe) 25 ml Q15M PRN IV DECREASED GLUCOSE; Start 11/14/18 at 19:30 Dextrose (D50w Syringe) 50 ml Q15M PRN IV DECREASED GLUCOSE; Start 11/14/18 at 19:30 Glucagon (Glucagen) 1 mg Q15M PRN IM DECREASED GLUCOSE; Start 11/14/18 at 19:30 Glucose (Glutose) 15 gm Q15M PRN BUCCAL DECREASED GLUCOSE; Start 11/14/18 at 19:30 Hydralazine HCl (Apresoline) 50 mg Q8 PO Last administered on 11/18/18at 05:40; Admin Dose 50 MG; Start 11/16/18 at 14:00 Clonidine (Catapres) 0.1 mg Q6H PRN PO SBP >170 Last administered on 11/16/18at 21:54; Admin Dose 0.1 MG; Start 11/16/18 at 14:00 Metoprolol Tartrate (Lopressor) 25 mg BID PO Last administered on 11/18/18at 08:26; Admin Dose 25 MG; Start 11/17/18 at 09:00 Nifedipine (Procardia Xl) 30 mg QHS PO Last administered on 11/17/18at 20:56; Admin Dose 30 MG; Start 11/17/18 at 21:00 Miscellaneous Information Patients own medicat... BID@10,16 XX ; Start 11/18/18 at 10:00 MARCK VERDUZCO 24, 2019 13:26
[2018-11-18] MEDS ORDERED: NIFEdipine (XL) 30 MG TAB PO ONE (14:15)
--- NOTE | 2018-11-18 16:12 | DS ---
Date/Time of Note Date/Time of Note DATE: 11/18/18 TIME: 16:09 Discharge Summary Admission/Discharge Info Admit Date/Time Nov 14, 2018 at 18:04 Discharge Date/Time Nov 18, 2018 at 15:08 Discharge Diagnosis 1. Hypertensive emergency- resolved 2. Syncopal episodes- resolved 3. CKD- stable 4. Acute chest pain- resolved 5. DM 6. hyperkalemia- resolved Patient Condition: Stable Consults Cardiology- Dr. Zapata Procedures PROCEDURE: Renal US. CLINICAL INDICATION: Abnormal renal function TECHNIQUE: Multiple sonographic images of the kidneys were obtained. The images were reviewed on a PACS workstation. COMPARISON: No prior studies are available for comparison. FINDINGS: Both kidneys are normal in echogenicity. There is normal renal cortical thickness without focal thinning or scarring. No solid renal masses are identified. There is no evidence of renal calculi or obstructive uropathy. The right kidney measures 10.2 cm, and the left kidney measures 10.7 cm. Spot images of the pelvis demonstrating a distended bladder with smooth contours. The prevoid bladder volume is 455 cc. IMPRESSION: 1. No evidence of renal calculi or obstructive uropathy. 2. Distended bladder with volume of 455 cc. This is similar to previous CT scan and may suggest urinary retention RPTAT: [facility] .Sohail Kulkarni MD, Date Time Electronically viewed and signed by .Sohail Kulkarni MD, on 11/14/2018 19:30 PROCEDURE: XR Chest AP portable CLINICAL INDICATION: Experiencing syncope TECHNIQUE: An AP portable radiograph of the chest was submitted. COMPARISON: 05/09/2018 FINDINGS: Support Hardware: None Cardiovascular: Although the heart remains normal in size, the pulmonary vasculature appears mildly congested. Lung Cintron: A suboptimal inspiration compresses lung parenchyma exaggerating the bronchovascular markings. No discrete infiltrate or nodule is evident. Pleural Spaces: No pneumothorax or pleural effusion is identified. Osseous Structures: The osseous structures appear intact. Soft Tissues: The soft tissues appear unremarkable. IMPRESSION: 1. Although the heart remains normal in size, the pulmonary vasculature now appears mildly congested. 2. A suboptimal inspiration exaggerates the perihilar bronchovascular markings but no discrete infiltrate, nodule, effusion, or pneumothorax is evident. Physician Marge Date Time Electronically viewed and signed by Physician Marge on 11/14/2018 14:42 PROCEDURE: CT Brain without contrast. CLINICAL INDICATION: Syncopal episode with head trauma. TECHNIQUE: A CT of the brain was performed on a multi-slice CT scanner utilizing axial imaging from the skull base through the vertex without IV contrast. Multiplanar reformatted images were made. Images were reviewed on a PACS workstation. One or more the following dose reduction techniques were utilized: Automated exposure control, adjustment of mA/ or kV according to patient's size, or use of iterative reconstruction technique. DICOM images are available for review. The CTDIvol is 30.16 mGy and the DLP is 698.62 mGycm. COMPARISON: None FINDINGS: No mass effect or midline shift. Normal ventricles for age. No acute intra-axial or extra-axial hemorrhage. No subdural collection. Manning - white matter differentiation is maintained. Visualized paranasal sinuses are clear. Mastoid air cells are clear. IMPRESSION: Negative noncontrast CT brain RPTAT: [facility] Physician Satnam Date Time Electronically viewed and signed by Physician Satnam on 11/14/2018 21:40 PROCEDURE: US Duplex Bilateral Extracranial Arteries CLINICAL INDICATION: Syncopal episode. Dizziness. TECHNIQUE: Real-time duplex ultrasound scan of the extracranial arteries integrating B- mode two-dimensional vascular structure, Doppler spectral analysis and color flow Doppler imaging. COMPARISON: None FINDINGS: RIGHT COMMON CAROTID ARTERY: Unremarkable. No occlusion or significant stenosis on color flow and spectral Doppler imaging. RIGHT INTERNAL CAROTID ARTERY: Unremarkable. No occlusion or significant stenosis on color flow and spectral Doppler imaging. RIGHT EXTERNAL CAROTID ARTERY: Unremarkable. No occlusion or significant stenosis on color flow and spectral Doppler imaging. RIGHT VERTEBRAL ARTERY: Unremarkable. Antegrade flow. RIGHT ICA/CCA RATIO: Unremarkable. Within normal limits. 0.9 LEFT COMMON CAROTID ARTERY: Unremarkable. No occlusion or significant stenosis on color flow and spectral Doppler imaging. LEFT INTERNAL CAROTID ARTERY: Unremarkable. No occlusion or significant stenosis on color flow and spectral Doppler imaging. LEFT EXTERNAL CAROTID ARTERY: Unremarkable. No occlusion or significant stenosis on color flow and spectral Doppler imaging. LEFT VERTEBRAL ARTERY: Unremarkable. Antegrade flow. LEFT ICA/CCA RATIO: Unremarkable. Within normal limits. 0.9 LYMPH NODES: Unremarkable. No lymphadenopathy. CAROTID STENOSIS REFERENCE USING SRU CRITERIA: Mild - <50% stenosis. ICA PSV is less than 125 cm/second and plaque or intimal thickening is visible. Moderate - 50-69% stenosis. ICA PSV is 125 to 230 cm/second and plaque is visible. Severe - 70-94% stenosis. ICA PSV is more than 230 cm/second and visible plaque with lumen narrowing is seen. Near occlusion - 95-99% stenosis. ICA PSV is variable and significant plaque with luminal narrowing is seen. Occluded - 100% stenosis. No flow identified. IMPRESSION: 1. Unremarkable carotid arteries. No plaque or stenosis demonstrated on either side. 2. Vertebral arteries are patent with antegrade flow bilaterally. RPTAT: [facility] Lakhwinder Fortune Physician [employer] Date Time Electronically viewed and signed by Lakhwinder Fortune Physician [employer] on 11/14/2018 21:10 Hx of Present Illness 53 yo F with PMH HTN and DM presented to ED after experiencing 3 syncopal episodes. Patient states he experienced the first episode on Monday, then aga in yesterday, and then this am. Patient states he would feel dizzy and then pass out for about 2-3 minutes he believes. Does admit to head trauma during yesterdays syncopal episode. He denies any associated headache, nausea, vomiting, shortness of breath, abdominal pain, or urinary issues. Denies any loss of bladder or bowel or soreness of tongue. Patient does admit to near sy ncopal episode this am with associated chest pain, pressure like, lasting 30 mins, and nonradiating. Did not take anything to make the pain go away. nothing worsened pain. In ED patient found with elevated K and BP 200s. Denies any chest pain, shortness of breath, palpations, nausea, vomiting, dizziness, or abdominal issues. He does admit to discomfort in right arm and lower legs bilaterally since this morning. Hospital Course Patient was admitted for syncopal workup and imaging studies were negative for acute abnormalities. Patient was found with uncontrolled blood pressure which most likely contributed to syncopal episodes. Cardiology consultation was placed given cardiac etiology and adjustments were made to medications. patients blood pressure improve over course of hospitalization and no longer had dizziness or experienced any further syncopal episodes. Patients renal function remained stable and imaging studies did not reveal any chronic disease. Patients presenting symptoms resolved and vitals as well as physical exam remained stable. Patient was discharged home in good condition. Home Meds Active Scripts Nifedipine (Procardia Xl) 30 Mg Tab.er.24, 30 MG PO QHS for 30 Days, #30 TAB 6 Refills Prov:WALLACE DAMON MD 11/18/18 Metoprolol Tartrate* (Lopressor*) 25 Mg Tab, 25 MG PO BID for 30 Days, #60 TAB 6 Refills Prov:WALLACE DAMON MD 11/18/18 Acetaminophen* (Tylenol*) 325 Mg Tablet, 650 MG PO Q6H PRN for .PAIN 1-3 OR TEMP for 30 Days, #120 TAB 6 Refills Prov:WALLACE DAMON MD 11/16/18 Hydralazine Hcl* (Apresoline*) 50 Mg Tab, 50 MG PO Q8 for 30 Days, #90 TAB 6 Refills Prov:WALLACE DAMON MD 11/16/18 Simvastatin* (Zocor*) 20 Mg Tablet, 20 MG PO QHS for 30 Days, #30 TAB 6 Refills Prov:WALLACE DAMON MD 11/16/18 Reported Medications Insulin Glargine* (Lantus*) 100 Unit/Ml Soln, 0 SC BID NEEDED, #1 VIAL 5-10 UNITS 11/14/18 Omeprazole* (Omeprazole*) 40 Mg Capsule.dr, 40 MG PO DAILY, #30 CAP 11/14/18 Discontinued Reported Medications Metoprolol Tartrate* (Lopressor*) 50 Mg Tab, 50 MG PO BID, #60 TAB 11/14/18 Loratadine* (Loratadine*) 10 Mg Tablet, 10 MG PO DAILY, #30 TAB 06/05/18 Losartan Potassium* (Losartan Potassium*) 25 Mg Tablet, 25 MG PO DAILY, TAB 06/05/18 Insulin Glargine* (Lantus*) 100 Unit/Ml Soln, 10 UNIT SC BID, #1 VIAL 05/09/18 Amlodipine Besylate* (Norvasc*) 5 Mg Tablet, 5 MG PO DAILY, TAB 04/19/18 Benazepril Hcl* (Benazepril Hcl*) 20 Mg Tablet, 20 MG PO BID, #60 TAB 04/17/18 Discontinued Scripts Omeprazole* (Omeprazole*) 40 Mg Capsule., 40 MG PO AC BREAKFAST for 90 Days, #90 CAP Prov:ANGELIC LU MD 04/21/18 Follow-up Plan 1. Follow up with your primary care physician in 1-2 weeks 2. Continue on Metoprolol twice a day but your dose was decreased to 25 mg since your HR was running lower than 60 in the hospital 3. Take Nifedipine 30mg prior to going to bed daily 4. Take Hydralazine 50 mg three times a day (can take with meals) 5. Monitor your blood pressure and if persists above 160, please call your primary care physician or go to your closest emergency department 6. It is important to follow a healthy diet and limit the amount of sodium you eat to 2 grams maximum. Be careful about eating canned foods since there is alot of sodium. Limit intake of processed foods since they are high in carbohydrates and fats 7. If experiencing any concerning symptoms, please go to your closest emergency department 8. Continue all other medications as prescribed 9. Make sure your PCP follows your renal function which remained stable while in the hospital 1. seguimiento con ewing mdico de atencin primaria en 1-2 semanas 2. Contine en metoprolol dos veces al da, rafiq ewing dosis se redujo a 25 mg ya que ewing HR estaba corriendo ms bajo que 60 en el hospital 3. [place] nifedipine 30mg antes de ir a la cama diariamente 4. [place] Hydralazine 50 mg bertin veces al da (puede ann con las comidas) 5. Controle ewing presin arterial y si persiste por encima de 160, por favor llame a ewing mdico de atencin primaria o vaya a ewing Departamento de emergencias ms cercano 6. es importante seguir khushbu dieta saludable y limitar la cantidad de sodio que comes a 2 gramos mximo. Tenga cuidado al comer alimentos enlatados, ya que hay mucho sodio. Limite la ingesta de alimentos procesados, ya que son ricos en carbohidratos y grasas 7. Si experimenta algn sntoma relacionado, por favor vaya a ewing Departamento de emergencias ms cercano 8. Contine con todos los dems medicamentos segn lo prescrito 9. Asegrese de que ewing PCP siga ewing funcin renal que permaneci estable mientras estaba en el hospital Primary Care Provider [facility] Time spent on discharge: > 30 minutes Pending Labs Laboratory Tests Test 11/17/18 17:31 11/17/18 20:59 11/18/18 04:41 11/18/18 07:52 Bedside 172 132 124 Glucose mg/dL (70-220) mg/dL (70-220) mg/dL (70-220) Sodium Level 139 mmol/L (135-14 4) Potassium 4.7 Level mmol/L (3.5-5. 1) Chloride Level 110 mmol/L (97-110 ) Carbon Dioxide 21 Level mmol/L (21-31) Anion Gap 8 (5-13) Blood Urea 31 Nitrogen mg/dl (7-20) Creatinine 1.60 mg/dl (0.61-1. 24) Glucose Level 105 mg/dl (70-220) Calcium Level 9.6 mg/dl (8.4-10. 2) Phosphorus 4.6 Level mg/dl (2.5-4.9 ) Magnesium 1.8 Level mg/dl (1.7-2.5 ) Albumin 3.5 g/dl (3.3-4.9) Test 11/18/18 13:13 Bedside 124 Glucose mg/dL (70-220) WALLACE DAMON MD Nov 18, 2018 16:12
--- NOTE | 2018-11-18 16:28 | RADRPT ---
Vent Rate: 58 bpm RR Interval: 0 msec VA Interval: 194 msec QRS Duration: 84 msec QT Interval: 418 msec QTC Interval: 410 msec P-R-T [place]: 52 - 0 - 49 degrees Sinus bradycardia T wave abnormality, consider lateral ischemia Abnormal ECG Electronically Signed By: Marquise Tracy
== END 2018-11-18 15:08 | disposition home or self-care (01) | DRG 305 ==
LOC: E/R 13:00 → TEL 18:04 → 2NE 11-18 00:48
PROVIDERS: ADMIT Internal Medicine; ATTEND Internal Medicine
DX: I16.1 Hypertensive emergency (principal); I12.9 Hypertensive chronic kidney disease with stage 1 through stage 4 chronic kidney disease, or unspecified chronic kidney disease; R55 Syncope and collapse; R07.9 Chest pain, unspecified; N18.9 Chronic kidney disease, unspecified; E87.5 Hyperkalemia; I10 Essential (primary) hypertension; E78.00 Pure hypercholesterolemia, unspecified; E11.22 Type 2 diabetes mellitus with diabetic chronic kidney disease
CPT/HCPCS: 36415; 70450; 71045; 76775; 80048; 80053; 80069; 82550; 82553; 82962; 83036; 83735; 84132; 84153; 84154; 84484; 85025; 93005; 93880; 97161; J0360; J1650; J1815; J7030; J7040